=== PATIENT | female | born 1960 | race Caucasian/White ===

== ENCOUNTER → 2023-08-19 07:02 | Outpatient (REF) | payer OTHER, SELFPAY | LOC: RAD 07:02 | PROVIDERS: ATTENDING PHYSICIAN Internal Medicine Hematology & Oncology; FAMILY PHYSICIAN Student in an Organized Health Care Education/Training Program | DX: C77.1 Secondary and unspecified malignant neoplasm of intrathoracic lymph nodes (principal); C34.91 Malignant neoplasm of unspecified part of right bronchus or lung; C78.7 Secondary malignant neoplasm of liver and intrahepatic bile duct; C77.0 Secondary and unspecified malignant neoplasm of lymph nodes of head, face and neck | CPT/HCPCS: 70491; 71260; 74177; Q9967 ==

== ENCOUNTER 2023-08-19 09:55 | Outpatient (RCR) | payer OTHER, SELFPAY ==
[2023-08-19 10:24] LABS: % Basophils 0.6 % (0-2); % Immature Granulocytes 0.6 % (0-0.5); % Lymphocytes 13.3 % (20.5-51.1); % Neutrophils 74.5 % (42.2-75.2); Absolute Basophils 0.1 10^3/uL (0-0.2); Absolute Eosinophils 0.2 10^3/uL (0-0.7); Absolute Immature Granulocytes 0.1 10^3/uL (0-0.05); Absolute Lymphocytes 1.4 10^3/uL (1.2-3.4); Absolute Monocytes 0.9 10^3/uL (0.1-0.6); Absolute Neutrophils 7.6 10^3/uL (1.4-6.5); Hematocrit 38.3 % (37.0-47.0); Mean Corp Hgb Conc. 33.9 g/dL (33.0-37.0); Mean Corpuscular Hgb 29.8 pg (27.0-31.0); Mean Corpuscular Volume 87.8 fL (81.0-99.0); Mean Platelet Volume 8.6 fL (7.4-10.4); Platelet Count 153 10^3/uL (130-400); Red Blood Cell Count 4.36 10^6/uL (4.20-5.40); Red Cell Dist. Width 14.8 % (11.5-14.5); White Blood Cell Count 10.2 10^3/uL (4.8-10.8)
[2023-08-19 10:29] VITALS: BMI 33.3
[2023-08-19 10:33] VITALS: BP 127/91
[2023-08-19 11:28] LABS: ALT (SGPT) 11 U/L (0-35); AST (SGOT) 19 U/L (14-36); Albumin 3.4 g/dl (3.5-5.0); Alkaline Phosphatase 93 U/L (38-126); Blood Urea Nitrogen 10 mg/dl (7-17); Calcium 8.9 mg/dl (8.4-10.2); Carbon Dioxide 26 mmol/L (22-30); Chloride 97 mmol/L (98-107); Estimated Creatinine Clearance 107 ml/min; Glucose 94 mg/dl (70-99); Potassium 3.6 mmol/L (3.5-5.1); Sodium 127 mmol/L (135-145); Total Bilirubin 0.6 mg/dl (0.2-1.3); Total Protein 6.4 g/dl (6.3-8.2); eGFR > 60.00
[2023-08-19 12:25] LABS: Free T4 0.94 ng/dl (0.78-2.19)
[2023-08-19] MEDS: OPDIVO 136 MG IV (13:15)
[2023-08-19] MEDS: YERVOY 68.5999999999999943 MG IV (14:02)
== END 2023-08-24 23:59 | disposition home or self-care (01) ==
LOC: OID 09:55
PROVIDERS: ATTENDING PHYSICIAN Internal Medicine Hematology & Oncology
DX: Z51.11 Encounter for antineoplastic chemotherapy (principal); C77.0 Secondary and unspecified malignant neoplasm of lymph nodes of head, face and neck; C78.7 Secondary malignant neoplasm of liver and intrahepatic bile duct; C34.91 Malignant neoplasm of unspecified part of right bronchus or lung
CPT/HCPCS: 80053; 84439; 84443; 85025; 96413; 96416; J9228; J9299

== ENCOUNTER 2023-08-30 14:21 | Emergency (ER) | payer OTHER, SELFPAY ==
[2023-08-30 14:32] VITALS: BP 124/78
[2023-08-30 14:56] LABS: % Basophils 0.7 % (0-2); % Eosinophils 1.8 % (0-6); % Immature Granulocytes 0.5 % (0-0.5); % Lymphocytes 10.4 % (20.5-51.1); % Monocytes 8.1 % (1.7-9.3); % Neutrophils 78.5 % (42.2-75.2); Absolute Basophils 0.1 10^3/uL (0-0.2); Absolute Eosinophils 0.2 10^3/uL (0-0.7); Absolute Immature Granulocytes 0.1 10^3/uL (0-0.05); Absolute Lymphocytes 1.1 10^3/uL (1.2-3.4); Absolute Monocytes 0.8 10^3/uL (0.1-0.6); Absolute Neutrophils 8.1 10^3/uL (1.4-6.5); Hematocrit 37.3 % (37.0-47.0); Hemoglobin 12.8 g/dL (12.0-16.0); Mean Corp Hgb Conc. 34.3 g/dL (33.0-37.0); Mean Corpuscular Hgb 29.4 pg (27.0-31.0); Mean Corpuscular Volume 85.6 fL (81.0-99.0); Mean Platelet Volume 9.3 fL (7.4-10.4); Nucleated Red Blood Cells % 0 %; Platelet Count 171 10^3/uL (130-400); Red Blood Cell Count 4.36 10^6/uL (4.20-5.40); Red Cell Dist. Width 14.6 % (11.5-14.5); White Blood Cell Count 10.3 10^3/uL (4.8-10.8)
[2023-08-30 15:07] LABS: ALT (SGPT) 14 U/L (0-35); AST (SGOT) 20 U/L (14-36); Albumin 3.3 g/dl (3.5-5.0); Alkaline Phosphatase 82 U/L (38-126); Blood Urea Nitrogen 13 mg/dl (7-17); Calcium 9.2 mg/dl (8.4-10.2); Carbon Dioxide 29 mmol/L (22-30); Chloride 99 mmol/L (98-107); Glucose 132 mg/dl (70-99); Potassium 3.3 mmol/L (3.5-5.1); Sodium 132 mmol/L (135-145); Total Bilirubin 0.5 mg/dl (0.2-1.3); Total Protein 6.6 g/dl (6.3-8.2); eGFR > 60.00
[2023-08-30 15:19] LABS: Troponin I < 0.012 ng/ml
--- NOTE | 2023-08-30 16:47 | ED.GENMED ---
History of Present Illness
<Joseph Bashir PA-C - Last Filed: 08/30/23 17:59>
General
Chief Complaint: Breathing Problem
Source: patient
Exam Limitations: none
Time Seen by Provider: 08/30/23 16:34
Travel History
Have you had any contact with someone who has COVID-19?: No
Do you have any symptoms of coronavirus? Fever > 100 degrees, chills, cough, shortness of breath, sore throat, loss of taste or smell, muscle aches, or headache?: Yes
Symptoms:: see triage note
History of Present Illness
History of Present Illness:
62-year-old female with history of lung cancer currently on immunotherapy presents complaining of onset of chest pain and shortness of breath this morning upon awakening. She states she is under extreme amount of stress. Her mother is potentially
going into hospice care. She was about to leave from the waiting room as she was feeling somewhat better but decided to keep her self here. She notes her symptoms are improved. She denies leg swelling. She continues to smoke. No measurable
fever at home. No new cough. No other complaints at this time
Past History
<Joseph Bashir PA-C - Last Filed: 08/30/23 17:59>
Past History
ED Past Medical History: COPD and Other (Bronchitis, pneumonia); Negative Cancer, HTN, Hypercholesterolemia, IDDM, NIDDM or [place]
ED Past Surgical History: Other (Liver biopsy)
Social History
Tobacco: Smoker
Alcohol: None
Drug: None
Living: with family (daughter and 85 yo mother)
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
Family History
Family History: Hypertension; Negative CAD
Phy Exam
<Joseph Bashir PA-C - Last Filed: 08/30/23 17:59>
Physical Exam
Physical Exam:
General: Well-appearing female no acute respiratory distress
HEENT: Normocephalic atraumatic neck is supple
Heart: Tachycardic but regular
Lungs are coarse bilaterally
Abdomen is soft nontender nondistended extremities:
Ext: NO cyanosis
Skin: warm, no rashes.
Scores
<Joseph Bashir PA-C - Last Filed: 08/30/23 17:59>
Heart Failure Risk
Heart Failure Risk Score: Not Applicable
Course
<Joseph Bashir PA-C - Last Filed: 08/30/23 17:59>
Orders/Labs/Results
Orders:
Orders
08/30/23 14:37
EKG [Electrocardiogram (*1)] Urgent
Reason for Study: Shortness of Breath
EKG- Treatment ONCE
08/30/23 14:46
Complete Blood Count/With Diff Urgent
Comprehensive Metabolic Panel Urgent
Troponin I Urgent
08/30/23 16:45
CT Chest Pe Study Urgent
Comment:
Reason For Exam: chest pain, sob, history of lung CA
Abnormal Lab Results
08/30/23
14:46
RDW 14.6 H %
(11.5-14.5)
Abs Immat Gran (auto) 0.1 H 10^3/uL
(0-0.05)
Absolute Neuts (auto) 8.1 H 10^3/uL
(1.4-6.5)
Absolute Lymphs (auto) 1.1 L 10^3/uL
(1.2-3.4)
Absolute Monos (auto) 0.8 H 10^3/uL
(0.1-0.6)
Neutrophils % 78.5 H %
(42.2-75.2)
Lymphocytes % 10.4 L %
(20.5-51.1)
Sodium 132 L mmol/L
(135-145)
Potassium 3.3 L mmol/L
(3.5-5.1)
Glucose 132 H mg/dl
(70-99)
Albumin 3.3 L g/dl
(3.5-5.0)
08/30/23 14:46
08/30/23 14:46
Vital Signs
Initial and Last Documented VS:
Initial Vital Signs
Temp Pulse Resp BP Pulse Ox
98.5 F 124 22 124/78 96
08/30/23 14:32 08/30/23 14:32 08/30/23 14:32 08/30/23 14:32 08/30/23 14:32
Last Documented Vital Signs
Temp Pulse Resp BP Pulse Ox
98.5 F 103 23 127/79 97
08/30/23 14:32 08/30/23 17:53 08/30/23 17:53 08/30/23 17:53 08/30/23 17:53
Elizabethlt;Pop Reyes, DO - Last Filed: 08/30/23 17:55>
Orders/Labs/Results
Orders:
Orders
08/30/23 14:37
EKG [Electrocardiogram (*1)] Urgent
Reason for Study: Shortness of Breath
EKG- Treatment ONCE
08/30/23 14:46
Complete Blood Count/With Diff Urgent
Comprehensive Metabolic Panel Urgent
Troponin I Urgent
08/30/23 16:45
CT Chest Pe Study Urgent
Comment:
Reason For Exam: chest pain, sob, history of lung CA
Abnormal Lab Results
08/30/23
14:46
RDW 14.6 H %
(11.5-14.5)
Abs Immat Gran (auto) 0.1 H 10^3/uL
(0-0.05)
Absolute Neuts (auto) 8.1 H 10^3/uL
(1.4-6.5)
Absolute Lymphs (auto) 1.1 L 10^3/uL
(1.2-3.4)
Absolute Monos (auto) 0.8 H 10^3/uL
(0.1-0.6)
Neutrophils % 78.5 H %
(42.2-75.2)
Lymphocytes % 10.4 L %
(20.5-51.1)
Sodium 132 L mmol/L
(135-145)
Potassium 3.3 L mmol/L
(3.5-5.1)
Glucose 132 H mg/dl
(70-99)
Albumin 3.3 L g/dl
(3.5-5.0)
08/30/23 14:46
08/30/23 14:46
Vital Signs
Initial and Last Documented VS:
Initial Vital Signs
Temp Pulse Resp BP Pulse Ox
98.5 F 124 22 124/78 96
08/30/23 14:32 08/30/23 14:32 08/30/23 14:32 08/30/23 14:32 08/30/23 14:32
Last Documented Vital Signs
Temp Pulse Resp BP Pulse Ox
98.5 F 103 23 127/79 97
08/30/23 14:32 08/30/23 17:53 08/30/23 17:53 08/30/23 17:53 08/30/23 17:53
Elizabethlt;Joseph Bashir PA-C - Last Filed: 08/30/23 17:59>
MDM/Problems Addressed
Differential Diagnosis Includes:
Chest pain or shortness of breath. Consider stress versus anxiety versus ACS versus PE. Symptoms are resolving but still tachycardic on exam. Troponin undetectable. Will check PE study given high risk nature with history of cancer.
<Joseph Bashir PA-C - Last Filed: 08/30/23 17:59>
*Critical Care Note
Total Time (30-74mins, 75-104mins- exclusive of procedures): Not Applicable
<Joseph Bashir PA-C - Last Filed: 08/30/23 17:59>
Update Note
Update Note:
PE study shows moderate pericardial effusion which is slightly increased from prior study. No pulmonary embolism. Multiple issues with her metastatic disease are noted on the CT as well. Patient is feeling better. Heart rate down to 100.
Patient wishes to go home. She has an appoint with her oncologist in 2 days which I think is reasonable to do. Return precautions were given
ED Attending Note
<Joseph Bashir PA-C - Last Filed: 08/30/23 17:59>
-
Portions of this chart may have been created with voice recognition software.� Occasional wrong word or��sound alike� substitutions may have occurred due to the inherent limitations of voice recognition software.
<Pop Reyes DO - Last Filed: 08/30/23 17:55>
ED Attending Note
Patient seen and examined by attending physician: Yes
I performed the substantive portion of visit, reviewed & personally made and approve the management plan that is documented in note by myself or MOSES.: Yes
ED Attending Note:
Seen with PA examined independently 62-year-old female advanced lung cancer followed by Dr. Patton under some stress related to her mother who is going into hospice, is tachycardic here, on CT no PE but does have a moderate effusion heart rate down
to 100 without intervention offered admission for potentially advanced imaging echo pericardiocentesis patient prefers to go home and see Dr. Patton on Friday to discuss this and any other treatments that could be benefit for her, patient clear
instructed to return to the ER for worsening symptoms
Discharge Plan
Departure
Patient Disposition: Home (Routine Discharge)
Date of Disposition: 08/30/23
Time of Disposition: 17:57
Patient with high blood pressure during this ER visit?: No
Discharge Problem:
Dyspnea
Instructions: Shortness of Breath (Dyspnea) (DC)
Prescriptions:
No Action
fexofenadine [Charisse] 180 MG tablet
180 mg PO DAILYPRN PRN (Reason: allergies)
amlodipine 10 MG tablet
10 mg PO DAILY Qty: 30 2RF
ondansetron HCl 4 MG tablet
8 mg PO TIDPRN PRN (Reason: nausea)
Lorazepam 0.5 MG Tablet
0.5 mg PO DAILY PRN (Reason: anxiety)
prednisone 5 mg Tablet
5 mg PO DAILY
prochlorperazine maleate 10 mg Tablet
10 mg PO Q6H PRN (Reason: nausea)
Referrals:
Judith Escobar MD [Family Provider] -
Activity Restrictions/Additional Instructions:
Please follow-up with your oncologist as planned. Please return here for worsening symptoms. As discussed there was a pericardial effusion noted on your CAT scan, this may require more follow-up with cardiology
Interventions
Interventions:
*General Assessment Last Done: 08/30/23 14:32
*ED COVID-19 Vaccine History Last Done: 08/30/23 14:32
Discharge Date and Time
Print Language: JAPANESE
[2023-08-30 17:53] VITALS: BP 127/79
== END 2023-08-30 18:11 | disposition home or self-care (01) ==
LOC: EMR 14:21
PROVIDERS: Emergency Medicine; EMERGENCY PHYSICIAN Emergency Medicine; FAMILY PHYSICIAN Student in an Organized Health Care Education/Training Program
DX: R06.00 Dyspnea, unspecified (principal); R07.89 Other chest pain; R06.02 Shortness of breath; F17.200 Nicotine dependence, unspecified, uncomplicated; J44.9 Chronic obstructive pulmonary disease, unspecified; Z82.49 Family history of ischemic heart disease and other diseases of the circulatory system
CPT/HCPCS: 99284; 71275; 80053; 84484; 85025; 93005; Q9967

== ENCOUNTER → 2023-09-02 15:54 | Outpatient (REF) | payer MEDICARE, SELFPAY | LOC: RCS 15:54 | PROVIDERS: ATTENDING PHYSICIAN Internal Medicine Hematology & Oncology; FAMILY PHYSICIAN Student in an Organized Health Care Education/Training Program | DX: C34.91 Malignant neoplasm of unspecified part of right bronchus or lung (principal) | CPT/HCPCS: 93306 ==

== ENCOUNTER 2023-09-10 14:31 | Outpatient (RCR) | payer OTHER, SELFPAY ==
[2023-08-26 13:22] LABS: % Basophils 0.7 % (0-2); % Eosinophils 2.5 % (0-6); % Immature Granulocytes 0.5 % (0-0.5); % Lymphocytes 11.5 % (20.5-51.1); % Monocytes 10.5 % (1.7-9.3); % Neutrophils 74.3 % (42.2-75.2); Absolute Basophils 0.1 10^3/uL (0-0.2); Absolute Eosinophils 0.3 10^3/uL (0-0.7); Absolute Immature Granulocytes 0.1 10^3/uL (0-0.05); Absolute Lymphocytes 1.2 10^3/uL (1.2-3.4); Absolute Monocytes 1.1 10^3/uL (0.1-0.6); Absolute Neutrophils 7.5 10^3/uL (1.4-6.5); Hematocrit 39.6 % (37.0-47.0); Hemoglobin 13.4 g/dL (12.0-16.0); Mean Corp Hgb Conc. 33.8 g/dL (33.0-37.0); Mean Corpuscular Hgb 29.6 pg (27.0-31.0); Mean Corpuscular Volume 87.4 fL (81.0-99.0); Mean Platelet Volume 9.5 fL (7.4-10.4); Platelet Count 165 10^3/uL (130-400); Red Blood Cell Count 4.53 10^6/uL (4.20-5.40); Red Cell Dist. Width 14.5 % (11.5-14.5); White Blood Cell Count 10.1 10^3/uL (4.8-10.8)
[2023-08-26 14:13] LABS: ALT (SGPT) 13 U/L (0-35); AST (SGOT) 23 U/L (14-36); Albumin 3.5 g/dl (3.5-5.0); Alkaline Phosphatase 92 U/L (38-126); Blood Urea Nitrogen 11 mg/dl (7-17); Carbon Dioxide 28 mmol/L (22-30); Chloride 97 mmol/L (98-107); Glucose 115 mg/dl (70-99); Potassium 3.5 mmol/L (3.5-5.1); Sodium 128 mmol/L (135-145); Total Bilirubin 0.7 mg/dl (0.2-1.3); Total Protein 6.7 g/dl (6.3-8.2); eGFR > 60.00
[2023-08-26 14:41] LABS: TSH Reflex To Free T4 9.77 uIU/ml (0.47-4.68)
[2023-08-26 15:35] LABS: Free T4 1.16 ng/dl (0.78-2.19)
[2023-09-09 08:59] LABS: % Basophils 1.1 % (0-2); % Eosinophils 2.1 % (0-6); % Immature Granulocytes 0.6 % (0-0.5); % Lymphocytes 18.2 % (20.5-51.1); % Monocytes 8.9 % (1.7-9.3); % Neutrophils 69.1 % (42.2-75.2); Absolute Basophils 0.1 10^3/uL (0-0.2); Absolute Eosinophils 0.2 10^3/uL (0-0.7); Absolute Immature Granulocytes 0.1 10^3/uL (0-0.05); Absolute Lymphocytes 1.5 10^3/uL (1.2-3.4); Absolute Monocytes 0.7 10^3/uL (0.1-0.6); Absolute Neutrophils 5.7 10^3/uL (1.4-6.5); Hematocrit 39.8 % (37.0-47.0); Hemoglobin 13.2 g/dL (12.0-16.0); Mean Corp Hgb Conc. 33.2 g/dL (33.0-37.0); Mean Corpuscular Hgb 29.5 pg (27.0-31.0); Mean Platelet Volume 8.9 fL (7.4-10.4); Platelet Count 164 10^3/uL (130-400); Red Blood Cell Count 4.47 10^6/uL (4.20-5.40); Red Cell Dist. Width 14.6 % (11.5-14.5); White Blood Cell Count 8.2 10^3/uL (4.8-10.8)
[2023-09-09 09:09] VITALS: BP 139/87; BMI 31.6
[2023-09-09 09:47] LABS: ALT (SGPT) 14 U/L (0-35); AST (SGOT) 19 U/L (14-36); Albumin 3.4 g/dl (3.5-5.0); Alkaline Phosphatase 91 U/L (38-126); Blood Urea Nitrogen 12 mg/dl (7-17); Calcium 9.2 mg/dl (8.4-10.2); Carbon Dioxide 28 mmol/L (22-30); Chloride 100 mmol/L (98-107); Glucose 150 mg/dl (70-99); Potassium 3.6 mmol/L (3.5-5.1); Sodium 132 mmol/L (135-145); Total Bilirubin 0.4 mg/dl (0.2-1.3); Total Protein 6.7 g/dl (6.3-8.2); eGFR > 60.00
[2023-09-09 10:18] LABS: TSH Reflex To Free T4 5.22 uIU/ml (0.47-4.68)
[2023-09-09] MEDS: OPDIVO 136 MG IV (10:23)
[2023-09-09] MEDS: EMEND 150 MG IV (11:01)
[2023-09-09 11:06] LABS: Free T4 1.49 ng/dl (0.78-2.19)
[2023-09-09] MEDS: ALOXI 5 MG IV (12:03)
[2023-09-09] MEDS: DECADRON 51 MG IV (12:04)
[2023-09-09] MEDS: ALIMTA/PEMETREXED 100 MG IV (12:42)
[2023-09-09 12:48] VITALS: BP 131/77
[2023-09-09] MEDS: PARAPLATIN 302.899999999999977 MG IV (13:10)
[2023-09-09] MEDS: CYANOCOBALAMIN 1000 MCG IM (14:55)
[2023-09-09 15:12] VITALS: BP 118/69
[2023-09-10 14:35] VITALS: BP 125/78
[2023-09-10] MEDS: FULPHILA 6 MG SC (14:42)
--- NOTE | 2023-09-15 10:21 | OIDSOC ---
Addendum entered and electronically signed by Fabiola Collins 09/15/23 10:23:
Pt did complete a distress screening, scoring an 8/10. Pt is already well known to addiction social worker, and Jennifer Mendoza, financial navigator. Will support pt as needed.
Original Note:
Met with pt chairside to follow up on financial concerns. Applied pt for [facility]. [facility]ear stopped by to speak with pt as well about [facility]. Offered [facility] to pt, who would like to utilize that david once she is in a new living
situation. Will continue to follow and assist pt as needed. Wally
== END 2023-09-23 23:59 | disposition home or self-care (01) ==
LOC: OID 14:31
PROVIDERS: ATTENDING PHYSICIAN Internal Medicine Hematology & Oncology
DX: Z51.11 Encounter for antineoplastic chemotherapy (principal); C77.0 Secondary and unspecified malignant neoplasm of lymph nodes of head, face and neck (principal); C34.91 Malignant neoplasm of unspecified part of right bronchus or lung; C78.7 Secondary malignant neoplasm of liver and intrahepatic bile duct
CPT/HCPCS: 36415; 80053; 84439; 84443; 85025; 96367; 96372; 96375; 96411; 96413; 96417; J1453; J2469; J9045; J9299; J9305; Q5108

== ENCOUNTER → 2023-09-18 15:13 | Outpatient (REF) | payer MEDICARE, SELFPAY | LOC: RCS 15:13 | PROVIDERS: ATTENDING PHYSICIAN Internal Medicine Cardiovascular Disease; FAMILY PHYSICIAN Student in an Organized Health Care Education/Training Program | DX: I31.39 Other pericardial effusion (noninflammatory) (principal); C34.90 Malignant neoplasm of unspecified part of unspecified bronchus or lung | CPT/HCPCS: 93308; 93321; 93325 ==

== ENCOUNTER → 2023-10-01 14:17 | Outpatient (REF) | payer OTHER, SELFPAY | LOC: RAD 14:17 | PROVIDERS: ATTENDING PHYSICIAN Internal Medicine Hematology & Oncology | DX: C34.91 Malignant neoplasm of unspecified part of right bronchus or lung (principal); C77.1 Secondary and unspecified malignant neoplasm of intrathoracic lymph nodes | CPT/HCPCS: 71270; Q9967 ==

== ENCOUNTER → 2023-10-01 14:18 | Outpatient (REF) | payer OTHER, SELFPAY | LOC: RAD 14:18 | PROVIDERS: ATTENDING PHYSICIAN Internal Medicine Hematology & Oncology | DX: C34.91 Malignant neoplasm of unspecified part of right bronchus or lung (principal); C77.1 Secondary and unspecified malignant neoplasm of intrathoracic lymph nodes | CPT/HCPCS: 70492; Q9967 ==

== ENCOUNTER 2023-10-04 23:32 | Inpatient (IN) | payer OTHER, SELFPAY ==
[2023-10-04 21:01] VITALS: BP 164/109
[2023-10-04 21:21] VITALS: BMI 32.0
[2023-10-04] MEDS: DUONEB 3 ML INH (21:30)
[2023-10-04 21:40] VITALS: BP 122/66
--- NOTE | 2023-10-04 21:45 | ED.GENMED ---
History of Present Illness
General
Chief Complaint: Breathing Problem
Source: patient
Exam Limitations: none
Time Seen by Provider: 10/04/23 21:13
Travel History
Have you had any contact with someone who has COVID-19?: No
Do you have any symptoms of coronavirus? Fever > 100 degrees, chills, cough, shortness of breath, sore throat, loss of taste or smell, muscle aches, or headache?: Yes
Symptoms:: SOB
History of Present Illness
History of Present Illness:
62-year-old female complaining of increased shortness of breath today. Generally feels weak after her chemotherapy treatment which was done 4 days ago. Hoarse voice and congestion are not unusual and have been ongoing. Also complaining of neck
swelling that has been there for weeks. Had a recent CT scan done. Actually feels neck swelling is mildly improved. Denies pleuritic pain abdominal pain
Past History
Past History
ED Past Medical History: Cancer (Stage IV lung cancer), COPD, HTN and Other (Bronchitis, pneumonia); Negative Hypercholesterolemia, IDDM, NIDDM or [place]
ED Past Surgical History: Other (Liver biopsy. Subcutaneous port)
Social History
Tobacco: Smoker
Alcohol: None
Drug: None
Living: with family (daughter and 85 yo mother)
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
Family History
Family History: Hypertension; Negative CAD
Review of Systems
Review of Systems
All Other Systems: Not applicable
Constitutional: Denies fever
Cardiac: Denies chest pain or syncope
Phy Exam
Physical Exam
Physical Exam:
GENERAL: Alert and oriented. Chronically ill-appearing.
NECK: Supple, submandibular swelling fairly soft in nature.
ENT: Pharynx without erythema no drooling or stridor although hoarse voice
CARDIAC: Regular rate and rhythm without any obvious murmurs.
LUNGS: Minimal tachypnea and mild rhonchi. No wheezing or rales
ABDOMEN: Soft, without focal tenderness or distention. Elevated BMI
NEUROLOGICAL: Alert and oriented , grossly non-focal
SKIN: Warm and dry, no rash or lesion, no discoloration, skin intact.
MUSCULOSKELETAL: No edema,no deformity.Good color
PSYCH: Normal and appropriate interaction.
Scores
Heart Failure Risk
Heart Failure Risk Score: Not Applicable
Course
Orders/Labs/Results
Orders:
Orders
10/04/23 21:20
CT Chest Pe Study Urgent
Comment:
Reason For Exam: Short of breath
Cardiac Monitoring- Treatment ONCE
IV Insert/Care/Rem.- Treatment PRN
CR Chest Portable - 1 View Urgent
Comment:
Reason For Exam: Short of breath
Reason Study Needs to be Portable: Unable to Transport
10/04/23 21:23
Basic Metabolic Panel Urgent
COVID-19 Antigen Urgent
Source: Nasal Swab
Complete Blood Count/With Diff Urgent
Manual Differential Urgent
NT-proBNP Urgent
Troponin I Urgent
Blood Culture Q30M
[place] Source: Blood/Venous
Specimen Description:
Blood Culture Q30M
[place] Source: Blood/Venous
Specimen Description:
10/04/23 21:27
Ipratropium/Albuterol Sulfate [Duoneb] 3 ml INH R NOW ONE
10/04/23 21:28
EKG [Electrocardiogram (*1)] Urgent
Reason for Study: Shortness of Breath
EKG- Treatment ONCE
10/04/23 21:43
Lactic Acid Q4H
Comment: CANCEL 2nd LACTIC ACID IF 1st LACTIC ACID IS LESS THAN 2
Abnormal Lab Results
10/04/23
21:23
RBC 4.02 L 10^6/uL
(4.20-5.40)
Hct 34.8 L %
(37.0-47.0)
RDW 17.6 H %
(11.5-14.5)
Plt Count 80 L D 10^3/uL
(130-400)
Abs Neuts (Manual) 8.1 H 10^3/uL
(1.4-6.5)
Segmented Neutrophils 90 H %
(42-75)
Lymphocytes (Manual) 4 L %
(20-51)
Sodium 127 L mmol/L
(135-145)
Chloride 92 L mmol/L
(98-107)
Creatinine 0.5 L mg/dL
(0.6-1.0)
10/04/23 21:23
10/04/23 21:23
Vital Signs
Initial and Last Documented VS:
Initial Vital Signs
Temp Pulse Resp BP Pulse Ox
98.1 F 120 28 164/109 92
10/04/23 21:01 10/04/23 21:01 10/04/23 21:01 10/04/23 21:01 10/04/23 21:01
Last Documented Vital Signs
Temp Pulse Resp BP Pulse Ox
97.9 F 110 18 117/81 98
10/05/23 07:00 10/05/23 11:59 10/05/23 11:59 10/05/23 08:13 10/05/23 11:59
MDM/Problems Addressed
Differential Diagnosis Includes:
Patient's major complaint is shortness of breath. Has general weakness but this is not unusual after chemotherapy. She had CAT scans done 3 days ago with significant adenopathy pericardial effusion small to moderate trace pleural effusions no
evidence of pneumonia. CT of the neck at that time showed swelling of the anterior neck with no airway compromise. Compression of the internal jugular vein. Chest x-ray is negative. Because of patient's increased shortness of breath still being
worked up. Pulmonary emboli pericardial effusion and COPD all in the differential.
*Radiology
Radiology exam reviewed: preliminary read by ED provider (Negative) and radiology read reviewed (No obvious PE aortic dissection or aortic aneurysm large filling defect left distal brachiocephalic vein likely central venous thrombus spiculated
nodule in the lung)
*Pulse Oximetry
Patient hypoxic: no
*EKG
Interpreted by ED Provider?: Yes
Interpretation: abnormal
Comparison EKG: changes noted
Heart Rate: 110
Rate: tachycardiac
Rhythm: sinus
[place]: normal axis
Interval: normal interval
QRS Pattern: normal QRS
Ischemia: non-specific ST changes
*Automated Cutting Machine Operator Interpretation
Rate: tachycardiac
Interpretation: abnormal
Heart Rate: 110
Rhythm: sinus
*Critical Care Note
Total Time (30-74mins, 75-104mins- exclusive of procedures): Not Applicable
Data Reviewed
Review of Other/Old Records Reveals: Labs, Records, Radiology Studies, Testing and Discharge Summary
ED Attending Note
-
Portions of this chart may have been created with voice recognition software.� Occasional wrong word or��sound alike� substitutions may have occurred due to the inherent limitations of voice recognition software.
Discharge Plan
Departure
Patient Disposition: Admit
Date of Disposition: 10/04/23
Time of Disposition: 22:59
Presentation/result/management discussed w/ accepting MD/DO: Hospitalist
Discharge Problem:
Dyspnea, Brachiocephalic vein thrombosis, Neck swelling, Hyponatremia
Interventions
Interventions:
*Risk Screen - Suicide Last Done: 10/05/23 01:28
*General Assessment Last Done: 10/04/23 21:01
*Neglect/Abuse Screening Last Done: 10/04/23 21:01
ED- Fall Risk Assessment Last Done: 10/04/23 21:30
*ED COVID-19 Vaccine History Last Done: 10/05/23 01:28
*Nursing Disposition Last Done: 10/05/23 01:12
ED- Cardiac Assessment Last Done: 10/04/23 21:30
ED- Pulmonary Assessment Last Done: 10/04/23 21:30
Discharge Date and Time
Discharge Date/Time: 10/05/23 01:15
[2023-10-04 21:59] LABS: COVID-19 Antigen Negative (Negative)
[2023-10-04 22:00] VITALS: BP 131/69
[2023-10-04 22:04] LABS: Hematocrit 34.8 % (37.0-47.0); Hemoglobin 12.1 g/dL (12.0-16.0); Mean Corp Hgb Conc. 34.8 g/dL (33.0-37.0); Mean Corpuscular Hgb 30.1 pg (27.0-31.0); Mean Corpuscular Volume 86.6 fL (81.0-99.0); Mean Platelet Volume 9.9 fL (7.4-10.4); Platelet Count 80 10^3/uL (130-400); Red Blood Cell Count 4.02 10^6/uL (4.20-5.40); Red Cell Dist. Width 17.6 % (11.5-14.5)
[2023-10-04 22:11] LABS: Lactic Acid 1.6 mmol/L (0.7-2.0)
[2023-10-04 22:13] LABS: Blood Urea Nitrogen 12 mg/dl (7-17); Calcium 9.2 mg/dl (8.4-10.2); Carbon Dioxide 27 mmol/L (22-30); Chloride 92 mmol/L (98-107); Estimated Creatinine Clearance 108 ml/min; Glucose 94 mg/dl (70-99); Potassium 3.5 mmol/L (3.5-5.1); Sodium 127 mmol/L (135-145); eGFR > 60.00
[2023-10-04 22:24] LABS: NT-proBNP 612 pg/ml
[2023-10-04 22:30] LABS: Lymphocytes 4 % (20-51); Segmented Neutrophils 90 % (42-75)
[2023-10-04 22:31] LABS: Absolute Neutrophils -Man Diff 8.1 10^3/uL (1.4-6.5); Atypical Lymphocytes 2 %; Band Neutrophils 0 % (0-3); Metamyelocytes 3 % (-); Myelocytes 1 % (-); Normal RBC Morphology Yes; Platelets Checked Yes; Total Cells Counted 100
--- NOTE | 2023-10-04 23:29 | HPS.HSE ---
Family Physician
-
Family Physician: Aydin Frey
Chief Complaint
-
Shortness of Breath
History of Present Illness
Patient is a 62 year old female patient with lung cancer, COPD, hypothyroidism who presents for worsening SOB. She states she has been experiencing ongoing SOB due to lung CA, but it acutely worsened today. She denies chest pain or worsening cough.
She also complains of ongoing hoarseness of voice and swelling of the neck for the past few weeks. CT scan in the ED showed a large filling defect in the distal left brachiocephalic vein, likely a central venous thrombus as well as moderate to
severe mediastinal, bilateral axillary and supraclavicular adenopathy. Hospitalist group was asked to evaluate the patient for admission to the hospital.
Medical History
Past Medical History
Past Medical History: Reports Other
Additional Past Medical History:
Stage LEONARDO Non-Small Cell Lung CA
Essential Hypertension
Hypothyroidism
Anxiety
COPD
Past Surgical History: Reports Other
Additional Past Surgical History:
SQ Port
Liver Biopsy
Social History
Tobacco: Smoker (/ PPD)
Alcohol: None
Family History
Family History: Not pertinent
Allergies / Home Medications
Allergies reflects when Allergies were last updated in [facility].
Home Medications with original date entered in [facility]
Allergy/Medication List:
Allergies
Allergy/AdvReac Type Severity Reaction Status Date / Time
Penicillins Allergy yeast Verified 10/01/23 11:58
infection
Home Medications
amlodipine 10 mg tablet 10 mg PO DAILY #30 tabs 06/22/20
Lorazepam 0.5 mg PO [id number] PRN anxiety 07/25/21
prednisone 5 mg tablet 10 mg PO DAILY 08/19/23
prochlorperazine maleate 10 mg tablet 10 mg PO Q6H PRN nausea 08/19/23
folic acid 1 mg tablet 1 mg PO DAILY 09/09/23
levothyroxine 25 mcg tablet (Synthroid) 25 mcg PO DAILY 09/09/23
budesonide 160 mcg-glycopyr 9 mcg-formot 4.8 mcg/actuation HFA inhaler (Breztri Aerosphere) 2 inh inhalation BID 10/04/23
Review of Systems
-
A 12 point ROS was completed and negative except as noted: Yes
Constitutional: Denies Fever or Chills
Respiratory: Reports Trouble Breathing
Cardiac: Denies Chest Pain or Palpitations
Physical Exam
Vital Signs
Vital Signs
Temp Pulse Resp BP Pulse Ox
99.5 F 107 14 131/69 93
10/04/23 21:32 10/04/23 22:00 10/04/23 22:00 10/04/23 22:00 10/04/23 22:00
Physical Exam
General: Comfortable, Conversant and Other (Voice is hoarse which patient states is chronic)
HEENT: Other (Facial/Neck Swelling, chronic per patient)
Respiratory: Wheezes (Expiratory throughout) and Non Labored Respirations
Cardiac: S1/S2, Regular Rhythm and Tachycardia
GI: Soft and Non Tender
Rectal: Deferred by Provider
Musculoskeletal: No Clubbing, No Cyanosis and No Edema
Skin: Warm and Dry
Neuro: Awake, Alert, Oriented and Nonfocal/grossly intact
Hematologic/Lymphatic: Lymphadenopathy (Neck)
Laboratory Results
-
10/04/23 21:23
10/04/23 21:23
Laboratory Results
Lactic Acid 1.6 mmol/L (0.7-2.0) 10/04/23 21:43
Troponin I 0.020 ng/ml 10/04/23 21:23
Data Reviewed
-
CT Scan: Report Reviewed by me
Lab Data: Labs Reviewed by me
Impression/Plan
-
Left Brachiocephalic Thrombosis
-Consult Hematology
-Start heparin drip
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
-Check urine sodium and urine osmo
-Continue fluid restriction
Thrombocytopenia, likely related to chemotherapy
-Monitor platelet cough closely
Stage IV Non-Small Cell Lung CA
-Last chemotherapy/immunotherapy on September 29
-Patient received pegfilgrastim on September 30
-Continue prednisone as prior to admission
Essential Hypertension
-Continue amlodipine with hold parameters
Hypothyroidism
-Check TSH
-Continue Synthroid
Anxiety
-Continue Ativan prn
COPD, no acute exacerbation
-Continue Pulmicort and DuoNeb in place of usual Breztri
Tobacco Use Disorder
-Encourage smoking cessation
Code Status: Full Code
[2023-10-04 23:44] VITALS: BP 104/75
--- NOTE | 2023-10-04 23:45 | EDRN ---
Patient ambulated to the bathroom and back in bed resting comfortably at this time
[2023-10-05] VITALS (8 sets, daily range): BP systolic 105–156; BP diastolic 67–94; BMI 31.4; BMI 31.3
[2023-10-05] MEDS: HEPARIN 25000 UNITS/250 ML IV ×2 (00:04→17:49)
[2023-10-05 00:05] LABS: APTT 30.7 Sec (23.4-35.0)
--- NOTE | 2023-10-05 00:05 | W.PN.UPDATE ---
Update Note
Progress Note Update
Patient seen, examined and interviewed independently.
62 woman with shortness of breath.
h/o lung cancer, COPD, hypothyroidism who presents for worsening SOB. CT scan in the ED showed a large filling defect in the distal left brachiocephalic vein, likely a central venous thrombus as well as moderate to severe mediastinal, bilateral
axillary and supraclavicular adenopathy.
Physical Exam
General: Comfortable, Conversant and Other (Voice is hoarse which patient states is chronic)
HEENT: Other (Facial/Neck Swelling, chronic per patient)
Respiratory: Wheezes (Expiratory throughout) and Non Labored Respirations
Cardiac: S1/S2, Regular Rhythm and Tachycardia
GI: Soft and Non Tender
Musculoskeletal: No Clubbing, No Cyanosis and No Edema
Skin: Warm and Dry
A/P:
Left Brachiocephalic Thrombosis
Heparin gtt
Hematology consult (platelets 80)
Please see PA note for further details.
[2023-10-05] MEDS: ATIVAN 0.5 MG PO ×3 (01:38→23:20)
[2023-10-05] MEDS: SYNTHROID 25 MCG PO (04:57)
[2023-10-05 06:09] LABS: APTT 57.3 Sec (23.4-35.0)
[2023-10-05 06:26] LABS: Hematocrit 32.4 % (37.0-47.0); Hemoglobin 11.1 g/dL (12.0-16.0); Mean Corp Hgb Conc. 34.3 g/dL (33.0-37.0); Mean Corpuscular Hgb 29.8 pg (27.0-31.0); Mean Corpuscular Volume 87.1 fL (81.0-99.0); Mean Platelet Volume 10.6 fL (7.4-10.4); Platelet Count 69 10^3/uL (130-400); Red Blood Cell Count 3.72 10^6/uL (4.20-5.40); Red Cell Dist. Width 17.7 % (11.5-14.5); White Blood Cell Count 5.6 10^3/uL (4.8-10.8)
[2023-10-05 06:32] LABS: Blood Urea Nitrogen 13 mg/dl (7-17); Calcium 8.6 mg/dl (8.4-10.2); Carbon Dioxide 30 mmol/L (22-30); Chloride 91 mmol/L (98-107); Estimated Creatinine Clearance 107 ml/min; Glucose 89 mg/dl (70-99); Magnesium 1.2 mg/dl (1.6-2.3); Potassium 3.7 mmol/L (3.5-5.1); Sodium 124 mmol/L (135-145); eGFR > 60.00
[2023-10-05 06:55] LABS: TSH Reflex To Free T4 4.02 uIU/ml (0.47-4.68)
[2023-10-05] MEDS: PULMICORT 0.5 MG INH (07:55)
[2023-10-05] MEDS: DUONEB 3 ML INH ×2 (07:55→11:56)
[2023-10-05] MEDS: DELTASONE 10 MG PO (08:12)
[2023-10-05] MEDS: FOLVITE 1 MG PO (08:12)
[2023-10-05] MEDS: MAGNESIUM SULFATE 50 IV (09:15)
[2023-10-05 11:03] LABS: Osmolality Urine 792 mOsm/kg (300-900)
[2023-10-05 11:10] LABS: Urine Sodium 98 mmol/L (30-90)
--- NOTE | 2023-10-05 11:24 | W.PN.HOSP.TC ---
Today's Communication/Plan
-
Await Heme eval
Treat Hyponatremia
Assessment / Plan
Assessment / Plan
62-year-old female presented to the hospital with shortness of breath. She was found to have left brachiocephalic vein thrombosis
CT Chest-1. No evidence of pulmonary embolism or thoracic aortic dissection.
2. Filling defect within the central left brachiocephalic vein, likely representing thrombus or tumor thrombus. In retrospect, this was present on 10/01/2023, and also on a prior study dated 08/19/2023, although was not present on 01/21/2023.
3. Diffuse lymphadenopathy as detailed above, without significant change compared to recent prior study dated 10/01/2023.
4. 9 mm spiculated nodule within the right upper lobe, likely corresponding to the patient's known lung cancer.
5. Bilateral adrenal masses, unchanged compared to prior study.
6. Small pericardial effusion, unchanged compared to recent prior CT.
CVS: S1-S2 normal
Chest: CTA B/L
Abdomen: Soft, NT / Bowel sounds present
Extremities: arm edema, normal pulses, port , right neck , upper chest mild edema
# Shortness of breath on admission - Says resolved. No reason noted on CT. saturation normal on room air.
# Left brachiocephalic vein thrombosis
Likely secondary to malignancy
On heparin drip
Hematology has been consulted
# Acute on chronic hyponatremia
Likely SIADH
Fluid restriction
One dose of Samsca 15 mg
# Hypomagnesemia-replace IV
# Thrombocytopenia-likely secondary to chemotherapy and also secondary to clot
# Stage IV non-small cell lung cancer
Last chemotherapy/immunotherapy in September 30, 2023
Received pegfilgrastim October 01, 2023
On prednisone
# Hypertension- amlodipine
# Hypothyroidism continue Synthroid
# Bilateral Adrenal masses
# Small to moderate sized circumferential fibrinous pericardial effusion seen without evidence of tamponade.
Compared to prior from September 02, 2023, on [id number] comparison effusion appears similar.
# Anxiety-as needed Ativan
# COPD with no exacerbation-continue Breztri or equivalent.
# Tobacco use disorder-smoking cessation counseling. Nicotine Patch
# Full code
D/W RN
Anticipated Discharge: Within 24 hours
Subjective/Interval History
-
Date of Service: October 05, 2023
Objective Data
-
Labs:
Laboratory Results
10/04/23 10/05/23 10/05/23
23:47 05:51 13:00
WBC 5.6
Hgb 11.1 L
Hct 32.4 L
Plt Count 69 L
APTT 30.7 57.3 H Pending
Sodium 124 L
Potassium 3.7
Chloride 91 L
Carbon Dioxide 30
BUN 13
Creatinine 0.5 L
Glucose 89
Calcium 8.6
Vital Signs:
Vital Signs
Temp Pulse Resp BP Pulse Ox
97.9 F 73 18 117/81 96
10/05/23 07:00 10/05/23 08:13 10/05/23 07:58 10/05/23 08:13 10/05/23 07:58
I&O
10/04/23 10/05/23 10/06/23
06:59 06:59 06:59
Intake Total 240 / 240
Balance 240 / 240
[2023-10-05 12:27] LABS: Cortisol, Random 16.4 ug/dl
[2023-10-05 13:26] LABS: Osmolality Serum 261 mOsm/kg (275-300)
[2023-10-05] MEDS: NICODERM TRANSDERMAL 21 MG TRANSDERM (13:29)
[2023-10-05] MEDS: SAMSCA 15 MG PO (13:30)
--- NOTE | 2023-10-05 15:01 | CM ---
Patient seen at bedside. She is up walking to bathroom in room. She lives with her dgtr in her mother's home. Mother recently and patient and her dgtr have to sell home to pay off reverse mortgage. Home is 2 levels with half bath on entry
level. UP full flight stairs to bedroom and full bath. Onlyh DME is shower rail. No history of snf or home care.
pCp Judith Adkins
Pharmacy: [facility]
plan home no needs.
[2023-10-05 15:55] LABS: APTT 169.3 Sec (23.4-35.0)
[2023-10-05 16:00] LABS: Troponin I 0.022 ng/ml
--- NOTE | 2023-10-05 21:14 | CON.ONC ---
Impression
Impression
Met non-small cell lung cancer, marked adenopathy
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
Shortness of breath
Plan
Plan
Full-dose Eliquis for clot which appears to be chronic (at least since 08/19/23).
Would benefit from having a business intelligence administrator to manage underlying lung disease. May benefit from home neb machine.
Now on carbo/Alimta/Opdivo/Yervoy as per Dr. Patton.
Okay for D/C if shortness of breath improved.
If not, please consult Pulmonary.
Patient History
History of Present Illness
Patient is a 62 year old female patient with lung cancer, COPD, hypothyroidism who presents for worsening SOB. She states she has been experiencing ongoing SOB due to lung CA, but it acutely worsened today. She denies chest pain or worsening cough.
She also complains of ongoing hoarseness of voice and swelling of the neck for the past few weeks. CT scan in the ED showed a large filling defect in the distal left brachiocephalic vein, likely a central venous thrombus as well as moderate to
severe mediastinal, bilateral axillary and supraclavicular adenopathy. Pt states breathing much better since starting nebs. She does not have a home neb machine and states she does not have a Computer Support Analyst.
Past-Medical/Surgical History
Past Medical History
Stage LEONARDO Non-Small Cell Lung CA
Essential Hypertension
Hypothyroidism
Anxiety
COPD
Past Surgical History
Port
Liver Biopsy
Social History
Tobacco: Smoker (/2 PPD)
Alcohol: None
Family History
Family History: Not pertinent
Patient Medication
�Medication �Instructions �Recorded �Confirmed �Last Taken �Type
amlodipine 10 mg tablet 10 mg PO DAILY #30 tabs 06/22/20 10/04/23 10/01/23 Rx
Lorazepam 0.5 mg PO [id number] PRN anxiety 07/25/21 10/04/23 10/01/23 History
prednisone 5 mg tablet 10 mg PO DAILY 08/19/23 10/04/23 10/01/23 History
prochlorperazine maleate 10 mg 10 mg PO Q6H PRN nausea 08/19/23 10/04/23 08/18/23 History
tablet
folic acid 1 mg tablet 1 mg PO DAILY 09/09/23 10/04/23 10/01/23 History
levothyroxine 25 mcg tablet 25 mcg PO DAILY 09/09/23 10/04/23 10/01/23 History
(Synthroid)
budesonide 160 mcg-glycopyr 9 2 inh inhalation BID 10/04/23 10/04/23 Unknown History
mcg-formot 4.8 mcg/actuation HFA
inhaler (Breztri Aerosphere)
Active Medications
Generic Name Dose Route Start Last Admin
Trade Name Freq PRN Reason Stop Dose Admin
Acetaminophen 650 mg 10/05/23 01:27
Acetaminophen 325 Mg Tablet PO 11/02/23 01:26
Q4HPRN PRN
mild pain/ fever>100.5F
Albuterol/Ipratropium 3 ml 10/05/23 01:27
Ipratropium 0.5/Albuterol 3 Mg (3 Ml Ampul) INH
R Q4HPRN PRN
shortness of breath/wheeze
Protocol
Amlodipine Besylate 10 mg 10/05/23 08:00 10/05/23 08:13
Amlodipine 10 Mg Tablet PO 11/02/23 07:59 Not Given
DAILY PABLO
Folic Acid 1 mg 10/05/23 08:00 10/05/23 08:12
Folic Acid 1 Mg Tablet PO 11/02/23 07:59 1 mg
DAILY PABLO Administration
Heparin Sodium 7,200 units 10/04/23 23:50
Heparin 80 Units/Kg Rebolus-Do Not Discard IV 11/01/23 23:49
PRN PRN
PTT < OR = 64 seconds
Heparin Sodium 3,600 units 10/04/23 23:51
Heparin 40 Units/Kg Rebolus-Do Not Discard IV 11/01/23 23:50
PRN PRN
PTT = 64.1 to 72.9 seconds
Heparin Sodium (Porcine) 500 unit 10/05/23 08:45
Heparin Flush Pf (100 Unit/Ml) 5 Ml Syringe IV 11/02/23 08:44
PRN PRN
PORT FLUSH
Heparin Sodium 25,000 units in 250 mls @ 0 mls/hr 10/04/23 23:45 10/05/23 17:49
Heparin 02677 Units/250 Ml IV 250 mls
PER PROTOCOL PABLO Administration
Protocol
Per Protocol
Levothyroxine Sodium 25 mcg 10/05/23 06:00 10/05/23 04:57
Levothyroxine 25 Mcg Tablet PO 11/02/23 05:59 25 mcg
DAILY @ 0600 PABLO Administration
Lorazepam 0.5 mg 10/05/23 01:27 10/05/23 01:38
Lorazepam 0.5 Mg Tablet PO 0.5 mg
[id number] PRN Administration
anxiety
Nicotine 21 mg 10/05/23 13:00 10/05/23 13:29
Nicotine 21 Mg Patch TRANSDERM 11/02/23 12:59 21 mg
DAILY PABLO Administration
Prednisone 10 mg 10/05/23 08:00 10/05/23 08:12
Prednisone 10 Mg Tablet PO 11/02/23 07:59 10 mg
DAILY PABLO Administration
Sodium Chloride 0 flush 10/04/23 23:00
Sodium Chloride 0.9% (Flush) Syringe IV 11/01/23 22:59
PER PROTOCOL PABLO
Physical Exam
-
Ill-appearing with marked facial swelling
Cutaneous involvement with cancer L neck and upper chest wall
Heart RRR
Breath sounds diminished
No lower extremity edema
Neuro grossly non-focal
Labs
Lab Results
WBC 5.6 10^3/uL (4.8-10.8) 10/05/23 05:51
RBC 3.72 10^6/uL (4.20-5.40) L 10/05/23 05:51
Hgb 11.1 g/dL (12.0-16.0) L 10/05/23 05:51
Hct 32.4 % (37.0-47.0) L 10/05/23 05:51
MCV 87.1 fL (81.0-99.0) 10/05/23 05:51
MCH 29.8 pg (27.0-31.0) 10/05/23 05:51
MCHC 34.3 g/dL (33.0-37.0) 10/05/23 05:51
RDW 17.7 % (11.5-14.5) H 10/05/23 05:51
Plt Count 69 10^3/uL (130-400) L 10/05/23 05:51
MPV 10.6 fL (7.4-10.4) H 10/05/23 05:51
Creatinine 0.5 mg/dL (0.6-1.0) L 10/05/23 05:51
Vital Signs
Vital Signs
Temp Pulse Resp BP Pulse Ox
97.2 F 114 18 156/94 92
10/05/23 19:20 10/05/23 19:20 10/05/23 19:20 10/05/23 19:20 10/05/23 19:20
[2023-10-05 23:36] LABS: APTT 114.4 Sec (23.4-35.0)
[2023-10-06 03:29] VITALS: BP 122/69; BMI 31.2
[2023-10-06] MEDS: SYNTHROID 25 MCG PO (04:48)
[2023-10-06 05:18] LABS: Hematocrit 30.2 % (37.0-47.0); Hemoglobin 10.4 g/dL (12.0-16.0); Mean Corp Hgb Conc. 34.4 g/dL (33.0-37.0); Mean Corpuscular Hgb 30.3 pg (27.0-31.0); Mean Platelet Volume 11.1 fL (7.4-10.4); Platelet Count 42 10^3/uL (130-400); Red Blood Cell Count 3.43 10^6/uL (4.20-5.40); Red Cell Dist. Width 17.8 % (11.5-14.5); White Blood Cell Count 4.7 10^3/uL (4.8-10.8)
[2023-10-06 05:31] LABS: APTT 142.7 Sec (23.4-35.0)
[2023-10-06 06:00] VITALS: BMI 31.2
[2023-10-06 06:08] LABS: Blood Urea Nitrogen 14 mg/dl (7-17); Calcium 8.5 mg/dl (8.4-10.2); Carbon Dioxide 32 mmol/L (22-30); Chloride 95 mmol/L (98-107); Estimated Creatinine Clearance 107 ml/min; Glucose 92 mg/dl (70-99); Potassium 3.7 mmol/L (3.5-5.1); Sodium 132 mmol/L (135-145); eGFR > 60.00
[2023-10-06 07:00] VITALS: BP 112/62
[2023-10-06] MEDS: FOLVITE 1 MG PO (07:56)
[2023-10-06] MEDS: DELTASONE 10 MG PO (07:56)
[2023-10-06] MEDS: NICODERM TRANSDERMAL 21 MG TRANSDERM (07:56)
[2023-10-06] MEDS: ELIQUIS 10 MG PO (08:29)
--- NOTE | 2023-10-06 10:16 | CM ---
Met with pt at bedside - for d/c today
CM consult for VN/HH - offered choices
Requested [facility] - TT sent to Liaison
Discussed IMM
Has ride with daughter to home
Plan - home with [facility] when medically ready
--- NOTE | 2023-10-06 10:30 | W.DCSUMMARY ---
Discharge Summary
Discharge Data
Date of Admission: 10/04/23
Date of Discharge: 10/06/23
-
Pending Results: No
Hospital Course
62 years old female with history of lung cancer and chronic obstructive pulmonary disease of presented with worsening shortness of breath. Patient reported that she had chronic wheezes and shortness of breath. She denied chest pain or worsening
cough. No hemoptysis. Scan of the chest showed large filling defect in the distal left brachiocephalic vein, likely central venous thrombosis as well as moderate to severe mediastinal, bilateral axillary and supraclavicular adenopathy. Patient
was started on intravenous heparin. She was evaluated by hematology/oncology doctor. Recommendation to do full dose Eliquis for the clot which appeared to be chronic ( at least since 08/19/23). Patient reported improvement in her breathing. She
did not have fever. She did not have leukocytosis. Patient had a stage IV non-small cell lung cancer. Her sodium was low on admission. 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
secondary to lung disease. She was maintained on fluid restriction and was given 1 dose of tolvaptan. Her sodium improved to 132. She did not have confusion. She had low magnesium and was given magnesium replacement therapy. She had history of
anxiety and chronic obstructive pulmonary disease. Patient remained hemodynamically stable, she did not need nasal oxygen. Patient was advised to continue fluid restriction at home and to follow-up with her primary care physician. Patient was
discharged in a stable condition.
Physical Exam
General: Comfortable, Conversant and Other (Voice is hoarse which patient stated was chronic)
HEENT: Other (Facial/Neck Swelling, chronic per patient). Moist MM>
Respiratory: Much less wheezes, Non Labored Respirations
Cardiac: S1/S2, Regular Rhythm and not Tachycardia
GI: Soft and Non Tender
Rectal: No rectal bleeding
Musculoskeletal: No Clubbing, No Cyanosis and No Edema
Skin: Warm and Dry
Neuro: Awake, Alert, Oriented and Nonfocal/grossly intact
Psych: no agitation.
Total discharge time spent to see the patient, examine the patient on the floor, review data and lab results, discuss discharge plan with patient and nursing staff around 65 minutes
Discharge Plan
-
Patient Disposition: Home with Home Care
Discharge Diagnosis/Procedures: Brachiocephalic vein thrombus. You are started on full dose Eliquis. You were seen by recovery engineer. We recommend outpatient follow-up with your recovery engineer.
You had low sodium, continue fluid restriction and regular diet at home. Please follow-up with your primary care doctor.
Hyponatremia
ANGEL
Condition: Good
Diet: Regular and Restrict fluids to 64 oz
Referrals:
Judith Escobar MD [Family Provider] - in one to two weeks
Prescriptions:
New
Eliquis 5 mg Tablet
10 mg PO BID Qty: 52 0RF
Rx Instructions:
Take 10 mg twice a day for 13 doses as a loading dose then 5 mg twice a day
Eliquis 5 mg Tablet
5 mg PO BID Qty: 60 0RF
Rx Instructions:
Take 10 mg twice a day for 13 doses as a loading dose then 5 mg twice a day
nicotine 21 mg/24 hr Patch 24 Hour
21 mg transdermal DAILY Qty: 28 0RF
Continued
amlodipine 10 MG tablet
10 mg PO DAILY Qty: 30 2RF
Lorazepam 0.5 MG Tablet
0.5 mg PO [id number] PRN (Reason: anxiety)
prednisone 5 mg Tablet
10 mg PO DAILY
prochlorperazine maleate 10 mg Tablet
10 mg PO Q6H PRN (Reason: nausea)
levothyroxine [Synthroid] 25 mcg Tablet
25 mcg PO DAILY
folic acid 1 mg Tablet
1 mg PO DAILY
Breztri Aerosphere 160-9-4.8 mcg/actuation Hfa Aerosol Inhaler
2 inh INHALATION BID
Discharge Orders:
Discharge Patient (As Directed); Ordered 10/06/23
Ordered By: Jenna López
Discharge Date and Time
Discharge Date/Time: 10/06/23 13:16
Print Language: SERBIAN
[2023-10-06 11:00] VITALS: BP 122/54
--- NOTE | 2023-10-06 12:13 | W.PN.UPDATE ---
Update Note
Progress Note Update
Saw the patient today. She is very anxious and eager to go home. She is threatening to go AMA yesterday. She is hemodynamic stable with good oxygenation.
Will discharge
--- NOTE | 2023-10-06 14:32 | VNURNOTE ---
Home Health Liaison met with patient at 1300 to discuss [facility] nurse visits, schedule and homebound status. Patient is agreeable and understands that visits at home will be 2-3 x per week to assess and teach medical management.
[facility] brochure provided with contact information. Patient is aware that [facility] will contact her for start of care in 1-2 days after discharge from .
[facility] referral completed in Care Port.
== END 2023-10-06 13:16 | disposition home health service (06) | DRG 300 ==
LOC: 3 WEST ACU 23:32
PROVIDERS: Hospitalist; Physician Assistant Medical; ADMITTING PHYSICIAN Internal Medicine; ATTENDING PHYSICIAN Internal Medicine; CONSULT PHYSICIAN Internal Medicine Hematology & Oncology; EMERGENCY PHYSICIAN Emergency Medicine; FAMILY PHYSICIAN Student in an Organized Health Care Education/Training Program
DX: I82.290 Acute embolism and thrombosis of other thoracic veins (principal); C34.90 Malignant neoplasm of unspecified part of unspecified bronchus or lung; E22.2 Syndrome of inappropriate secretion of antidiuretic hormone; J44.0 Chronic obstructive pulmonary disease with (acute) lower respiratory infection; I87.1 Compression of vein; I31.39 Other pericardial effusion (noninflammatory); N17.9 Acute kidney failure, unspecified; I10 Essential (primary) hypertension; F17.210 Nicotine dependence, cigarettes, uncomplicated; E03.9 Hypothyroidism, unspecified; E83.42 Hypomagnesemia; F41.9 Anxiety disorder, unspecified; D69.59 Other secondary thrombocytopenia; R59.9 Enlarged lymph nodes, unspecified; E27.8 Other specified disorders of adrenal gland; Z88.0 Allergy status to penicillin; Z92.21 Personal history of antineoplastic chemotherapy; Z79.890 Hormone replacement therapy; Z79.52 Long term (current) use of systemic steroids; Z11.52 Encounter for screening for COVID-19
CPT/HCPCS: 71045; 71275; 80048; 82533; 83605; 83735; 83880; 83930; 83935; 84300; 84443; 84484; 85025; 85027; 85730; 87040; 87811; 93005; 94640; 96365; 99285; 99406; Q9967

== ENCOUNTER → 2023-10-16 13:49 | Outpatient (REF) | payer OTHER, SELFPAY | LOC: HWRCS 13:49 | PROVIDERS: ATTENDING PHYSICIAN Internal Medicine Cardiovascular Disease; FAMILY PHYSICIAN Student in an Organized Health Care Education/Training Program | DX: I31.39 Other pericardial effusion (noninflammatory) (principal) | CPT/HCPCS: 93308 ==

== ENCOUNTER 2023-10-21 07:45 | Outpatient (RCR) | payer OTHER, SELFPAY ==
[2023-09-30 08:58] VITALS: BP 130/84
[2023-09-30 09:09] LABS: % Basophils 0.7 % (0-2); % Eosinophils 0.5 % (0-6); % Lymphocytes 9.3 % (20.5-51.1); % Monocytes 8.8 % (1.7-9.3); % Neutrophils 79.7 % (42.2-75.2); Absolute Basophils 0.1 10^3/uL (0-0.2); Absolute Eosinophils 0.1 10^3/uL (0-0.7); Absolute Immature Granulocytes 0.1 10^3/uL (0-0.05); Absolute Lymphocytes 1.1 10^3/uL (1.2-3.4); Absolute Monocytes 1.1 10^3/uL (0.1-0.6); Absolute Neutrophils 9.8 10^3/uL (1.4-6.5); Hematocrit 36.1 % (37.0-47.0); Hemoglobin 12.1 g/dL (12.0-16.0); Mean Corp Hgb Conc. 33.5 g/dL (33.0-37.0); Mean Corpuscular Hgb 30.3 pg (27.0-31.0); Mean Corpuscular Volume 90.3 fL (81.0-99.0); Mean Platelet Volume 9.1 fL (7.4-10.4); Platelet Count 178 10^3/uL (130-400); White Blood Cell Count 12.3 10^3/uL (4.8-10.8)
[2023-09-30 10:04] LABS: ALT (SGPT) 15 U/L (0-35); AST (SGOT) 21 U/L (14-36); Albumin 3.3 g/dl (3.5-5.0); Alkaline Phosphatase 98 U/L (38-126); Blood Urea Nitrogen 11 mg/dl (7-17); Calcium 9.2 mg/dl (8.4-10.2); Carbon Dioxide 30 mmol/L (22-30); Chloride 97 mmol/L (98-107); Glucose 143 mg/dl (70-99); Potassium 3.3 mmol/L (3.5-5.1); Sodium 131 mmol/L (135-145); Total Bilirubin 0.5 mg/dl (0.2-1.3); eGFR > 60.00
[2023-09-30 10:35] LABS: TSH Reflex To Free T4 3.38 uIU/ml (0.47-4.68)
[2023-09-30] MEDS: OPDIVO 136 MG IV (11:09)
[2023-09-30] MEDS: YERVOY 68 MG IV (12:01)
[2023-09-30] MEDS: EMEND 150 MG IV (12:41)
[2023-09-30] MEDS: ALOXI 5 MG IV (13:13)
[2023-09-30] MEDS: DECADRON 51 MG IV (13:13)
[2023-09-30] MEDS: ALIMTA/PEMETREXED 100 MG IV (13:46)
[2023-09-30] MEDS: PARAPLATIN 303 MG IV (14:03)
[2023-10-01 11:51] VITALS: BP 111/62
[2023-10-01] MEDS: KCL 260 MEQ IV (11:56)
[2023-10-01] MEDS: CLARITIN 10 MG PO (12:11)
[2023-10-01] MEDS: FULPHILA 6 MG SC (14:11)
[2023-10-21 08:00] VITALS: BP 139/85
[2023-10-21 08:18] VITALS: BMI 30.6
[2023-10-21 08:31] LABS: % Basophils 0.7 % (0-2); % Eosinophils 0.3 % (0-6); % Immature Granulocytes 1.9 % (0-0.5); % Lymphocytes 6.1 % (20.5-51.1); % Monocytes 8.1 % (1.7-9.3); % Neutrophils 82.9 % (42.2-75.2); Absolute Basophils 0.1 10^3/uL (0-0.2); Absolute Immature Granulocytes 0.3 10^3/uL (0-0.05); Absolute Lymphocytes 0.8 10^3/uL (1.2-3.4); Absolute Monocytes 1.1 10^3/uL (0.1-0.6); Absolute Neutrophils 11.5 10^3/uL (1.4-6.5); Hematocrit 33.1 % (37.0-47.0); Hemoglobin 11.1 g/dL (12.0-16.0); Mean Corp Hgb Conc. 33.5 g/dL (33.0-37.0); Mean Corpuscular Hgb 30.7 pg (27.0-31.0); Mean Corpuscular Volume 91.7 fL (81.0-99.0); Mean Platelet Volume 9.6 fL (7.4-10.4); Platelet Count 158 10^3/uL (130-400); Red Blood Cell Count 3.61 10^6/uL (4.20-5.40); Red Cell Dist. Width 19.9 % (11.5-14.5); White Blood Cell Count 13.9 10^3/uL (4.8-10.8)
[2023-10-21 08:42] LABS: ALT (SGPT) 13 U/L (0-35); AST (SGOT) 24 U/L (14-36); Albumin 3.4 g/dl (3.5-5.0); Alkaline Phosphatase 107 U/L (38-126); Blood Urea Nitrogen 9 mg/dl (7-17); Calcium 9.1 mg/dl (8.4-10.2); Carbon Dioxide 28 mmol/L (22-30); Chloride 94 mmol/L (98-107); Estimated Creatinine Clearance 106 ml/min; Glucose 99 mg/dl (70-99); Potassium 3.4 mmol/L (3.5-5.1); Sodium 129 mmol/L (135-145); Total Bilirubin 0.6 mg/dl (0.2-1.3); Total Protein 6.6 g/dl (6.3-8.2); eGFR > 60.00
[2023-10-21 09:12] LABS: TSH Reflex To Free T4 4.18 uIU/ml (0.47-4.68)
--- NOTE | 2023-10-21 10:20 | PTCARENOTE ---
Client presented for chemo today. Client experiencing severe selling of the neck, face, eyes and left arm. States that she has been having ongoing swelling of the face and neck but it is significantly worse now, hard and extending to eyes and left
arm. Client's port is also on the left. States she is having difficulty swallowing, excreting secretions and sleeping. VS 97.4 109 22 139/85 with a pulse ox of 97% on room air. [facility] notified and advised to send to emergency room for
evaluation.
== END 2023-10-24 23:59 | disposition home or self-care (01) ==
LOC: OID 07:45
PROVIDERS: ATTENDING PHYSICIAN Internal Medicine Hematology & Oncology
DX: C34.11 Malignant neoplasm of upper lobe, right bronchus or lung (principal); Z51.11 Encounter for antineoplastic chemotherapy (principal); C77.0 Secondary and unspecified malignant neoplasm of lymph nodes of head, face and neck; C34.91 Malignant neoplasm of unspecified part of right bronchus or lung; C78.7 Secondary malignant neoplasm of liver and intrahepatic bile duct
CPT/HCPCS: 36591; 80053; 84443; 85025; 96365; 96366; 96367; 96372; 96375; 96411; 96413; 96417; J1453; J2469; J9045; J9228; J9299; J9305; Q5108

== ENCOUNTER 2023-10-21 16:48 | Inpatient (IN) | payer MEDICARE, SELFPAY ==
[2023-10-21] VITALS (9 sets, daily range): BP systolic 105–140; BP diastolic 64–107; BMI 31.6; BMI 30.6
[2023-10-21] MEDS: NSS 1000 IV (12:21)
--- NOTE | 2023-10-21 12:31 | ED.GENMED ---
History of Present Illness
General
Chief Complaint: Swelling
Source: patient
Exam Limitations: none
Time Seen by Provider: 10/21/23 11:14
Nursing documentation reviewed up to this point in time: agreed with
Travel History
Have you had any contact with someone who has COVID-19?: No
Do you have any symptoms of coronavirus? Fever > 100 degrees, chills, cough, shortness of breath, sore throat, loss of taste or smell, muscle aches, or headache?: No
History of Present Illness
History of Present Illness:
Patient with history of metastatic lung cancer, along with ongoing neck swelling, recently started on Eliquis secondary to blood clot noted in her brachiocephalic vein, presents to ED secondary to increased neck swelling with worsening shortness of
breath with exertion, as well as increased left arm swelling. Denies fever or chills. Denies nausea, vomiting, or diarrhea. Denies chest pain. Denies headache. Denies dizziness. Denies difficulty with swallowing. Patient states that she was
told by her oncologist that her neck swelling is secondary to continual use of prednisone.
Past History
Past History
ED Past Medical History: Cancer (Stage IV lung cancer), COPD, HTN and Other (Bronchitis, pneumonia); Negative Hypercholesterolemia, IDDM, NIDDM or ME
ED Past Surgical History: Other (Liver biopsy. Subcutaneous port)
Social History
Tobacco: Smoker
Alcohol: None
Drug: None
Living: with family (daughter and 85 yo mother)
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
Family History
Family History: Hypertension; Negative CAD
Review of Systems
Review of Systems
Allergies reviewed?: Yes
All Other Systems: ROS reviewed and negative except as documented in HPI and ROS
Constitutional: Reports no symptoms
EENT: Reports no symptoms
Respiratory: Reports trouble breathing
Cardiac: Reports no symptoms
ABD/GI: Reports no symptoms
: Reports no symptoms
Musculoskeletal: Reports edema
Skin: Reports other (Neck swelling)
Neurological: Reports no symptoms
Phy Exam
Physical Exam
Physical Exam:
Physical Exam
General: mild distress, not acutely ill. afebrile
Head: nc/at. eomi
Neck: supple. no meningeal signs. normal posterior pharynx. submandibular swelling noted, diffuse, without tenderness.
Heart: s1/s2 regular rate and rhythm, no murmur. equal radial pulses.
Lungs: no acute respiratory distress. clear bilaterally
Abdomen: normal bowel sounds. not tender.
Neuro: alert and oriented. no focal neurological deficits
Skin: no rash.
Psychiatric: well kept. interactive and cooperative
Extremities: UE edema, L>R. no calf tenderness.
Scores
Heart Failure Risk
Heart Failure Risk Score: Not Applicable
Course
Orders/Labs/Results
Orders:
Orders
10/21/23 12:14
CT Chest With Iv Contrast Urgent
Comment:
Reason For Exam: neck swelling//sob, with known lung cancer
CT Neck With Iv Contrast Urgent
Comment:
Reason For Exam: swelling
10/21/23 12:15
0.9% Sodium Chloride 1000 ml [Nss] 1,000 ml IV BOLUS
10/21/23 Dinner
Regular
At Your Request: Full Participation
Does patient need a safe tray?: No
Fluid Restriction: 1200 mL/day (40 oz)
10/21/23 15:41
Heparin 7,100 units IV NOW STA
Nursing to Place Non Medication Order As Directed
Physician Order: PTT 6 hours after initial start of Heparin infusion
Above order entered?: Yes
10/21/23 15:45
Heparin 29352 Units/250 ml 25,000 units in 250 ml IV PER PROTOCOL
Weight to be used for heparin protocol in kilograms (kg):: 88.9
Protocol:: DVT/PE
PTT Goal Range to be used:: PTT 73 to 111 seconds
Order type:: Initial
INITIAL Infusion Dose (UNITS/KG/hr) & then follow protocol:: 18 units/kg/hr
Infusion Dose in UNITS/hr & then follow protocol (UNITS/hr):: 1,600
INFUSION RATE in mL/hr & then follow protocol (mL/hr):: 16
For DVT/PE algorithm, re-bolus for low PTT?: Yes
PTT less than or equal to 64 seconds:: Re-bolus 80 units/kg (max 10,000units). Increase by 400 units/hr
(+ 4mL/hr)
PTT 64.1 to 72.9 seconds:: Re-bolus 40 units/kg (max 5,000 units). Increase by 200 units/hr
(+ 2mL/hr)
PTT 73 to 111 seconds:: Target Range. No change in rate.
PTT 111.1 to 130.9 seconds:: Decrease rate by 200 units/hr (- 2 mL/hr)
PTT 131 to 199.9 seconds:: HOLD for 1 hr. Then decrease by 300 units/hr (- 3mL/hr)
PTT greater than or equal to 200 seconds:: HOLD for 2 hrs & Notify Provider. Then decrease by 400 units/hr
(- 4mL/hr)
Lab follow-up:: Each change, PTT q6h until 2 consecutive are therapeutic. Then
PTT daily.
10/21/23 16:15
PTT Urgent
10/21/23 16:28
Heparin 7,100 units IV PRN PRN
10/21/23 16:29
Heparin 3,600 units IV PRN PRN
10/21/23 16:35
Admit/Transfer Patient As Directed
Co-Sign Provider:
Level of Care: Inpatient admission
Assign to:: Telemetry
Physician / Group: nabor
Diagnosis: SVC thrombosis
Reason for Telemetry: Arrhythmia
Date to Stop Telemetry: 10/24/23
Time to Stop Telemetry: 11:00
Reason for Hospitalization: SVC thrombosis
Expected length of stay greater than two midnights?: Yes
ELOS- Estimated Length of Stay in days: 2
I certify the patient meets the requirements for IP care: Yes
10/21/23 16:36
Code Status As Directed
Resuscitation Status: Full Code
10/21/23 17:37
Albuterol [ProAIR HFA INHALER] 2 puff INH R Q6HPRN PRN
Docusate Sodium [Colace] 100 mg PO DAILYPRN PRN
Lorazepam [Ativan] 0.5 mg PO Q6HPRN PRN
Magnesium Hydroxide [Milk of Magnesia] 30 ml PO DAILYPRN PRN
Polyethylene Glycol Powder [Miralax] 17 grams PO DAILYPRN PRN
10/21/23 17:37
ONCOLOGY CONSULT Routine
Consulting Provider: Madhu Aguiar
Was physician already notified: Yes
Vascular Surgery Consult Routine
Consulting Provider: Ken Brandt III
Was physician already notified: Yes
VTE Contraindication Routine
VTE Mechanical Device Contraindication: Medical Contraindication
Pharmocologic Contraindication: Medical Contraindication
Heparin Protocol- PTT Orders As Directed
PTT per Heparin protocol: -Obtain CBC and baseline PTT - if not already collected.
-Obtain PTT 6 hours from start of infusion. Then, every 6 hours until 2 consecutive
PTT's are therapeutic. Then, PTT Daily.
-With each rate change, obtain PTT every 6 hours until 2 consecutive PTT's are
therapeutic. Then, PTT Daily.
Heparin Protocol- PTT Orders As Directed
PTT per Heparin protocol: -Obtain CBC and baseline PTT - if not already collected.
-Obtain PTT 6 hours from start of infusion. Then, every 6 hours until 2 consecutive
PTT's are therapeutic. Then, PTT Daily.
-With each rate change, obtain PTT every 6 hours until 2 consecutive PTT's are
therapeutic. Then, PTT Daily.
Activity As Directed
Activity Level: As Tolerated
Notify MD As Directed
Notify physician if: PTT is greater than or equal to 200.
Vital Signs As Directed
Frequency: Per unit guidelines
Speech Therapy Eval & Treat Routine
10/21/23 17:57
Loratadine [Claritin] 10 mg PO DAILYPRN PRN
10/21/23 18:00
Ondansetron HCl [Zofran] 8 mg PO Q8HPRN PRN
10/21/23 18:08
Magnesium Routine
10/22/23 06:00
Levothyroxine [Synthroid] 25 mcg PO DAILY @ 0600
10/22/23 08:00
Amlodipine [Norvasc] 10 mg PO DAILY
FOLic ACID [Folvite] 1 mg PO DAILY
Nicotine [Nicoderm Transdermal] 21 mg TRANSDERM DAILY
Prednisone [Deltasone] 10 mg PO DAILY
10/22/23 08:08
Complete Blood Count/With Diff IN AM
Comprehensive Metabolic Panel IN AM
10/24/23 11:00
DC Protocol for Telemetry ONCE
Abnormal Lab Results
10/21/23
16:15
APTT 36.9 H Sec
(23.4-35.0)
Vital Signs
Initial and Last Documented VS:
Initial Vital Signs
Temp Pulse Resp BP Pulse Ox
98.3 F 118 18 125/80 96
10/21/23 10:31 10/21/23 10:31 10/21/23 10:31 10/21/23 10:31 10/21/23 10:31
Last Documented Vital Signs
Temp Pulse Resp BP Pulse Ox
97.7 F 106 23 145/76 98
10/22/23 12:00 10/22/23 12:00 10/22/23 12:00 10/22/23 12:00 10/22/23 12:00
MDM/Problems Addressed
MDM/Problems Addressed:
CT report reviewed and discussed with on-call oncologist, Dr. Rivera. Recommends discontinuing Eliquis and admitted patient on heparin infusion.
*Critical Care Note
Total Time (30-74mins, 75-104mins- exclusive of procedures): Not Applicable
ED Attending Note
-
Portions of this chart may have been created with voice recognition software.� Occasional wrong word or��sound alike� substitutions may have occurred due to the inherent limitations of voice recognition software.
Discharge Plan
Departure
Patient Disposition: Admit
Date of Disposition: 10/21/23
Time of Disposition: 15:47
Admit to: Telemetry
Presentation/result/management discussed w/ accepting MD/DO: Hospitalist
Discharge Problem:
Superior vena cava thrombosis
Interventions
Interventions:
*Risk Screen - Suicide Last Done: 10/21/23 11:43
*General Assessment Last Done: 10/21/23 11:43
*Neglect/Abuse Screening Last Done: 10/21/23 11:43
ED- Fall Risk Assessment Last Done: 10/21/23 17:56
*ED COVID-19 Vaccine History Last Done: 10/21/23 10:31
*Nursing Disposition Last Done: 10/21/23 17:56
ED- Cardiac Assessment Last Done: 10/21/23 11:43
ED- Pulmonary Assessment Last Done: 10/21/23 11:43
ED-Skin Assessment Last Done: 10/21/23 11:43
Discharge Date and Time
Discharge Date/Time: 10/21/23 17:57
[2023-10-21] MEDS: HEPARIN 25000 UNITS/250 ML IV (16:37)
[2023-10-21] MEDS: HEPARIN 7100 UNITS IV (16:37)
[2023-10-21 16:39] LABS: APTT 36.9 Sec (23.4-35.0)
--- NOTE | 2023-10-21 16:44 | HPS.HSE ---
Addendum entered and electronically signed by Shaji Maloney MD 10/21/23 16:48:
Check magnesium due to hypokalemia.
Original Note:
Family Physician
-
Family Physician: Judith Escobar MD
Chief Complaint
-
neck swelling
History of Present Illness
62-year-old female past medical history of left brachiocephalic vein thrombosis, stage IV non-small cell lung cancer, COPD, hyponatremia, hypomagnesemia, thrombocytopenia secondary to chemotherapy, hypertension, hypothyroidism, bilateral adrenal
masses, small to moderate fibrinous pericardial effusion, anxiety, recently diagnosed with left distal brachiocephalic vein thrombosis presenting for worsening neck swelling over the past 2 weeks as well as swelling in her left upper extremity. She
denies any neck pain or pain in her left upper extremity. She denies facial flushing or headache. She has chronic blurry vision secondary to cataracts. She denies any chest pain. She is slightly more short of breath than usual and has hoarseness
of voice which is chronic. She also has a cough which is chronic. Denies dizziness or syncope. She denies nausea or vomiting or diarrhea.
She also has difficulty swallowing over the past few weeks especially with pills.
Her oncologist is Dr. Patton. She was scheduled to have chemotherapy today. She last received chemotherapy 3 weeks ago.
Patient was admitted 2 weeks ago from 10/03 to 10/05 for worsening shortness of breath. Patient had CT PE which showed large filling defect in the left distal brachiocephalic vein likely central venous stenosis as well as moderate to severe
mediastinal, bilateral axillary and supraclavicular adenopathy. Patient was started on IV heparin. Patient was seen by heme-onc.
Patient was started on Eliquis and her breathing improved.
Patient was started on fluid restriction for hyponatremia given 1 dose of tolvaptan.
Patient is only smoking 2 to 3 cigarettes at this time since starting nicotine patch. Denies alcohol.
Medical History
Past Medical History
Past Medical History: Reports Other ( left brachiocephalic vein thrombosis, stage IV non-small cell lung cancer, COPD, hyponatremia, hypomagnesemia, thrombocytopenia secondary to chemotherapy, hypertension, hypothyroidism, bilateral adrenal masses,
small to moderate fibrinous pericardial effusion, anxiety,)
Past Surgical History: Reports Other (Liver biopsy. Subcutaneous port))
Social History
Tobacco: Smoker
Alcohol: None
Drug: None
Family History
Family History: Not pertinent
Allergies / Home Medications
Allergies reflects when Allergies were last updated in [facility].
Home Medications with original date entered in [facility]
Allergy/Medication List:
Allergies
Allergy/AdvReac Type Severity Reaction Status Date / Time
Penicillins Allergy yeast Verified 10/21/23 10:33
infection
Home Medications
lorazepam 0.5 mg tablet 0.5 mg PO Q6HPRN PRN anxiety 07/25/21
prednisone 5 mg tablet 10 mg PO DAILY anti-inflammation 08/19/23
folic acid 1 mg tablet 1 mg PO DAILY Supplement 09/09/23
levothyroxine 25 mcg tablet (Synthroid) 25 mcg PO DAILY Thyroid 09/09/23
budesonide 160 mcg-glycopyr 9 mcg-formot 4.8 mcg/actuation HFA inhaler (Breztri Aerosphere) 2 inh inhalation R BID Lung/Breathing Issues 10/04/23
albuterol sulfate 90 mcg/actuation aerosol inhaler (ProAir HFA) 2 puff inhalation R Q6HPRN PRN sob 10/21/23
amlodipine 10 mg tablet 10 mg PO DAILY Blood Pressure 10/21/23
apixaban 5 mg tablet (Eliquis) 5 mg PO BID Blood Clot Prevention/Tx 10/21/23
docusate sodium 100 mg capsule (Colace) 100 mg PO DAILYPRN PRN constipation 10/21/23
fexofenadine 180 mg tablet (Charisse Allergy) 180 mg PO DAILYPRN PRN allergies 10/21/23
magnesium hydroxide 400 mg/5 mL oral suspension (Milk of Magnesia) 2,400 mg PO DAILYPRN PRN constipation 10/21/23
nicotine 21 mg/24 hr daily transdermal patch 21 mg transdermal DAILY nicotine replacement 10/21/23
ondansetron HCl 8 mg tablet 8 mg PO Q8HPRN PRN nausea 10/21/23
polyethylene glycol 3350 17 gram oral powder packet (Miralax) 17 g PO DAILYPRN PRN constipation 10/21/23
Review of Systems
-
History Source: Patient
A 12 point ROS was completed and negative except as noted: Yes
Constitutional: Reports No Symptoms
EENT: Reports No Symptoms
Respiratory: Reports See HPI
Cardiac: Reports No Symptoms
Abdomen/GI: Reports No Symptoms
: Reports No Symptoms
Musculoskeletal: Reports No Symptoms
Skin: Reports No Symptoms
Neurological: Reports No Symptoms
Endocrine: Reports No Symptoms
Hematologic/Lymphatic: Reports No Symptoms
Psych: Reports No Symptoms
Physical Exam
Vital Signs
Vital Signs
Temp Pulse Resp BP Pulse Ox
98.3 F 99 18 131/81 99
10/21/23 10:31 10/21/23 13:46 10/21/23 13:46 10/21/23 13:46 10/21/23 13:46
Physical Exam
General: Well Developed, Well Nourished and No Apparent Distress
HEENT: NormoCephalic, Moist mucous membranes, Atraumatic and Other (neck swelling, left upper extremity swelling )
Respiratory: Clear
Cardiac: S1/S2 and Regular Rhythm; No Murmur or Rub
GI: Soft, Non Tender, Non Distended and Normal Bowel Sounds; No Organomegaly
Rectal: Deferred by Provider
Musculoskeletal: No Clubbing, No Cyanosis and No Edema
Skin: No Rash
Neuro: Nonfocal/grossly intact
Laboratory Results
-
Laboratory Results
APTT 36.9 Sec (23.4-35.0) H 10/21/23 16:15
Data Reviewed
-
Lab Data: Labs Reviewed by me
Old Records: Reviewed
Impression/Plan
-
IMPRESSION:
PLAN:
# Neck swelling/left upper extremity swelling secondary to new superior vena cava thrombosis
# History of recent left brachiocephalic vein thrombosis
-CT chest shows superior vena cava thrombosis, previously seen 5 cm confluent felicia mass in the right cervical thoracic junction
-Prior CT chest scan from 10/03 showed left brachiocephalic vein thrombosis
-Check venous ultrasound left upper extremity to evaluate for DVT
-Switch Eliquis to heparin drip, may require long-term Lovenox
-Consult vascular surgery for consideration of thrombolysis
-Oncology consulted
# Dysphagia secondary to right cervical thoracic junction lymphadenopathy
-Check swallow evaluation
Stage IV non-small cell lung cancer on chemotherapy
-Continue prednisone
COPD
-Continue inhalers
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
-Fluid restriction 40 ounces
History of hypomagnesemia
Thrombocytopenia secondary to chemotherapy
-Improved
Essential hypertension
-Continue amlodipine
Hypothyroidism
-Continue levothyroxine
History of bilateral adrenal masses
History of small to moderate fibrinous pericardia
Anxiety/depression
-Continue Ativan
Tobacco use disorder
-Continue nicotine patch
Full code
DVT prophylaxis�heparin
Regular diet
--- NOTE | 2023-10-21 17:02 | CON.VAS ---
Addendum entered and electronically signed by Ken Brandt III, MD 10/21/23 17:44:
This patient was seen and examined with ELA Jones and ELA Owusu. I agree with the history and physical exam as well as the assessment and plan. I have the following additions:
62-year-old female
Stage IV lung cancer
Currently receiving chemotherapy
Prior XRT to the neck
Left chest wall port currently
Presents with increasing swelling in her neck along with left arm swelling
Denies swelling in the right arm
Denies voice changes
Denies acute worsening of shortness of breath
Has chronic cough and hoarseness at baseline
Consulted for thrombus in the SVC
I personally reviewed CT scans of the chest and neck from 10/21/2023, 10/04/2023, 10/01/2023, 08/19/2023 and 01/21/2023
There is thrombus surrounding the port catheter in the left brachiocephalic extending to the confluence of the left and right brachiocephalic veins and involving the origin of the superior vena cava. This has been present since July 2023.
She is on Eliquis at home for this particular issue.
On physical exam she is nontoxic-appearing
Face and neck are swollen
Speaking in full sentences
Does not appear to have labored respirations
Left upper extremity is diffusely edematous compared to the right
She reports that the right is at baseline.
Admit to ICU
Close monitoring
Keep HOB elevated to reduce any potential symptoms
Anticoagulation with Heparin gtt- therapeutic ptt goal
Options for mechanical thrombectomy are quite limited at this point given chronicity of the thrombus (present ~ 9 weeks) and the ongoing need for the port (with limited vascular access options to replace if port removed).
Drake wrap compression left arm and elevation to help with edema
If ongoing symptoms would consult IR regarding additional input for mechanical thrombectomy options.
Call with questions/concerns
Signed:
Ken Brandt III, MD
[facility]
[phone] (cell)
Original Note:
Consultation
Consultation Request
Date/Time Consultation Performed: 10/21/23 1645
Requesting Provider: ED Provider
Performing Provider: Leni Vieyra NP-C for Ken Brandt III, MD
Reason for Consultation: Thrombus
Medical History
-
Chief Complaint: Venous thrombus
History of Present Illness:
This is a 62-year-old female with significant past medical history of left brachiocephalic vein thrombosis, stage IV non-small cell lung cancer, COPD, hyponatremia, hypomagnesemia, thrombocytopenia secondary to chemotherapy, hypertension,
hypothyroidism, bilateral adrenal masses, small to moderate fibrinous pericardial effusion, and anxiety (who was recently diagnosed with left distal brachiocephalic vein thrombosis placed on Eliquis on 10/03), who presents for worsening neck swelling
over the past 2 weeks as well as swelling in her left upper extremity. She does report loss of secondary insurance a few months ago leading to her missing chemo/doctor appointments and then shortly after learned her cancer had spread. She denies
neck pain, CP, and HE. Does endorse chronic cough and hoarse voice, which is unchanged from baseline. Denies dizziness or syncope. She denies nausea or vomiting or diarrhea. She also has difficulty swallowing over the past few weeks especially with
pills.
Past Medical History
Past Medical History: Other ( left brachiocephalic vein thrombosis, stage IV non-small cell lung cancer, COPD, hyponatremia, hypomagnesemia, thrombocytopenia secondary to chemotherapy, hypertension, hypothyroidism, bilateral adrenal masses, small to
moderate fibrinous pericardial effusion, anxiety)
Past Surgical History: Other (liver biopsy, port placement )
Social History
Tobacco: Smoker
Alcohol: None
Drug: None
Allergies / Home Medications
Allergy/AdvReac Type Severity Reaction Status Date / Time
Penicillins Allergy yeast Verified 10/21/23 10:33
infection
�Medication �Instructions �Recorded �Confirmed �Type
lorazepam 0.5 mg tablet 0.5 mg PO Q6HPRN PRN anxiety 07/25/21 10/21/23 History
prednisone 5 mg tablet 10 mg PO DAILY anti-inflammation 08/19/23 10/21/23 History
folic acid 1 mg tablet 1 mg PO DAILY Supplement 09/09/23 10/21/23 History
levothyroxine 25 mcg tablet 25 mcg PO DAILY Thyroid 09/09/23 10/21/23 History
(Synthroid)
budesonide 160 mcg-glycopyr 9 2 inh inhalation R BID 10/04/23 10/21/23 History
mcg-formot 4.8 mcg/actuation HFA Lung/Breathing Issues
inhaler (Breztri Aerosphere)
albuterol sulfate 90 mcg/actuation 2 puff inhalation R Q6HPRN PRN sob 10/21/23 10/21/23 History
aerosol inhaler (ProAir HFA)
amlodipine 10 mg tablet 10 mg PO DAILY Blood Pressure 10/21/23 10/21/23 History
apixaban 5 mg tablet (Eliquis) 5 mg PO BID Blood Clot 10/21/23 10/21/23 History
Prevention/Tx
docusate sodium 100 mg capsule 100 mg PO DAILYPRN PRN constipation 10/21/23 10/21/23 History
(Colace)
fexofenadine 180 mg tablet 180 mg PO DAILYPRN PRN allergies 10/21/23 10/21/23 History
(Charisse Allergy)
magnesium hydroxide 400 mg/5 mL 2,400 mg PO DAILYPRN PRN 10/21/23 10/21/23 History
oral suspension (Milk of Magnesia) constipation
nicotine 21 mg/24 hr daily 21 mg transdermal DAILY nicotine 10/21/23 10/21/23 History
transdermal patch replacement
ondansetron HCl 8 mg tablet 8 mg PO Q8HPRN PRN nausea 10/21/23 10/21/23 History
polyethylene glycol 3350 17 gram 17 g PO DAILYPRN PRN constipation 10/21/23 10/21/23 History
oral powder packet (Miralax)
Review of Systems
-
History Source: Patient
Constitutional: Reports Fatigue
EENT: Reports Other (SOB)
Respiratory: Reports Cough
Abdomen/GI: Reports No Symptoms
: Reports No Symptoms
Musculoskeletal: Reports Edema (neck and LUE)
Skin: Reports No Symptoms
Neurological: Reports No Symptoms
Physical Exam
Vital Signs
Temp Pulse Resp BP Pulse Ox
98.3 F 74 11 116/85 95
10/21/23 10:31 10/21/23 17:00 10/21/23 17:00 10/21/23 16:21 10/21/23 17:00
Physical Exam
General: No Apparent Distress and Comfortable
HEENT: Other (symmetrical neck swelling)
Respiratory: Non Labored Respirations
Cardiac: Negative JVD
GI: Non Distended
Musculoskeletal: Edema (BL UE edema, Left worse than right)
Skin: Warm
Neuro: AO x 3
Assessment / Plan
-
Assessment: 62 year old female with stage IV non small cell lung cancer, presenting with venous thrombus left distal brachial cephalic
Plan:
Reviewed prior CT in july of this year with attending Dr. Ken Brandt III, evidence of LUE brachial cephalic venous clot at that time, agree with anticoagulation per oncology
No surgical intervention at this time
Plan reviewed with attending
--- NOTE | 2023-10-21 17:45 | PTCARENOTE ---
10/20- Patient transferred and oriented to unit without issue. AAOX3; Heparin gtts currently running at 16mL/hr. APPT=36.9; next APPT ordered for 22:30. Lungs coarse throughout BL, but POX=94% on RA. Patient denies any current needs or concerns.
[2023-10-21 18:32] LABS: Magnesium 1.3 mg/dl (1.6-2.3)
[2023-10-21] MEDS: ATIVAN 0.5 MG PO (22:12)
[2023-10-21 22:48] LABS: INR 1.51; PT 18.1 Sec (11.4-14.6)
[2023-10-21 23:07] LABS: APTT > 200 Sec (23.4-35.0)
--- NOTE | 2023-10-21 23:15 | PTCARENOTE ---
PTT result > 200. House POLE TESTER Ana Boyle notified, heparin gtt stopped per protocol. No new orders, will restart heparin gtt in 2 hours at 12 mL/hr.
[2023-10-22 03:00] VITALS: BP 116/72
[2023-10-22] MEDS: SYNTHROID 25 MCG PO (04:53)
[2023-10-22] MEDS: NICODERM TRANSDERMAL 21 MG TRANSDERM (07:55)
[2023-10-22] MEDS: NORVASC 10 MG PO (07:58)
[2023-10-22] MEDS: FOLVITE 1 MG PO (07:58)
[2023-10-22] MEDS: DELTASONE 10 MG PO (07:58)
[2023-10-22] MEDS: ATIVAN 0.5 MG PO (07:59)
[2023-10-22 08:13] VITALS: BP 124/83
[2023-10-22 08:44] LABS: % Basophils 1.1 % (0-2); % Eosinophils 1.1 % (0-6); % Immature Granulocytes 2.2 % (0-0.5); % Lymphocytes 7.8 % (20.5-51.1); % Monocytes 8.4 % (1.7-9.3); % Neutrophils 79.4 % (42.2-75.2); Absolute Basophils 0.1 10^3/uL (0-0.2); Absolute Eosinophils 0.1 10^3/uL (0-0.7); Absolute Immature Granulocytes 0.3 10^3/uL (0-0.05); Absolute Neutrophils 9.7 10^3/uL (1.4-6.5); Hematocrit 30.9 % (37.0-47.0); Hemoglobin 10.5 g/dL (12.0-16.0); Mean Corpuscular Hgb 30.8 pg (27.0-31.0); Mean Corpuscular Volume 90.6 fL (81.0-99.0); Mean Platelet Volume 10.1 fL (7.4-10.4); Nucleated Red Blood Cells % 0 %; Platelet Count 152 10^3/uL (130-400); Red Blood Cell Count 3.41 10^6/uL (4.20-5.40); Red Cell Dist. Width 20.7 % (11.5-14.5); White Blood Cell Count 12.2 10^3/uL (4.8-10.8)
[2023-10-22 08:56] LABS: APTT 78.3 Sec (23.4-35.0)
--- NOTE | 2023-10-22 09:27 | VNURNOTE ---
Patient is current with [facility] since 10/08 w/SN, will monitor progress and plan at discharge.
--- NOTE | 2023-10-22 09:52 | PTOTSP ---
SPEECH THERAPY SWALLOW EVALUATION:
Patient exhibits grossly functional oral swallow and clinical signs of suspected pharyngeal dysphagia, likely chronic related to stage IV lung cancer with associated right paratracheal mass with esophageal compression and Left trachea deviation.
Patient is at high risk for aspiration and related complications given: location of paratracheal mass suspicious for impacting swallow function, history of radiation therapy to neck, severely harsh/strained vocal quality (though patient denied
changes), neck and surrounding area firm upon palpation, suspicious for anatomical changes related to XRT. WBC currently elevated. Recommend Videofluoroscopic Swallowing Study to further assess patient's swallow function. Discussed recommendation
with patient, who reported she previously has 'bad reaction to barium'. Discussed this with Dr. Lacey AMBRIZ to await clearance from MD prior to VSE to ensure patient able to safely participate. Given chronicity of dysphagia, patient appears safe
to continue oral diet at this time. Recommend Regular texture diet, thin liquids. Meds whole in puree. Aspiration precautions: Upright positioning, small single sips/bites, slow rate. ST to follow, provide additional recommendations following VSE if
able to complete, and provide continued diagnostic swallow therapy as appropriate.
RECOMMEND:
1) Videofluoroscopic Swallowing Study if/when cleared by MD
2) Regular texture diet, thin liquids
3) Meds whole in puree
4) Aspiration precautions: Upright positioning, small single sips/bites, slow rate
5) ST to follow
[2023-10-22] MEDS: MAGNESIUM SULFATE 50 IV (11:05)
[2023-10-22 11:39] LABS: ALT (SGPT) 13 U/L (0-35); AST (SGOT) 27 U/L (14-36); Albumin 3.1 g/dl (3.5-5.0); Alkaline Phosphatase 100 U/L (38-126); Blood Urea Nitrogen 9 mg/dl (7-17); Calcium 8.8 mg/dl (8.4-10.2); Carbon Dioxide 26 mmol/L (22-30); Chloride 96 mmol/L (98-107); Estimated Creatinine Clearance 106 ml/min; Glucose 73 mg/dl (70-99); Potassium 3.5 mmol/L (3.5-5.1); Sodium 130 mmol/L (135-145); Total Bilirubin 0.6 mg/dl (0.2-1.3); eGFR > 60.00
--- NOTE | 2023-10-22 11:54 | W.PN.UPDATE ---
Update Note
Progress Note Update
Impression:
SVC thrombosis
Non-small cell lung carcinoma with right apical mass
Right chest chemotherapy port
Conditions prior to admission:
[2023-10-22 12:00] VITALS: BP 145/76
[2023-10-22] MEDS: HEPARIN 25000 UNITS/250 ML IV (12:24)
--- NOTE | 2023-10-22 13:43 | W.PN.HOSP.TC ---
Addendum entered and electronically signed by Evert Rahman MD 10/22/23 17:48:
Patient seen and examined
Discussed with resident
Discussed with oncology and vascular surgery.
62-year-old female with stage IV non-small cell carcinoma with right apical tumor presents with increasing swelling in her neck along with the left arm swelling.
Patient is afebrile, not short of breath with stable respiratory and hemodynamic status.
CT scan of the chest and neck from 528 consistent with thrombosis surrounding port catheter in the left brachiocephalic extending to the confluence of the left and right brachiocephalic vein and involving origin of superior vena cava which present
since July 2023.
Patient is on anticoagulation with Eliquis as outpatient.
Initiated on IV heparin.
Found to be not at thrombosis candidate due to age of from.
Later in review with imaging there is a concern for mechanical compression with significant lymphadenopathy causing progression of SVC thrombosis.
Oncology input appreciated.
Patient is planned for initiation of radiation treatment
Will be transition off IV heparin back to Eliquis and discharged to follow-up with oncology and radiation oncology as soon as possible.
Original Note:
Today's Communication/Plan
-
Switch to oral eliquis.
Follow up with oncology outpatient
Follow up with radiation oncology and resume XRT.
Assessment / Plan
Assessment / Plan
Assessment-
62-year-old female with PMHx significant for left brachiocephalic vein thrombosis, stage IV NSCLC, COPD, thrombocytopenia, hyponatremia, hypomagnesemia secondary to chemotherapy, hypertension, hypothyroidism, bilateral adrenal masses presents for
evaluation of worsening neck swelling and swelling in her left upper extremity x 2 weeks-diagnosed with SVC thrombosis.
Impression-
SVC thrombosis
Left brachiocephalic vein thrombosis
Hypokalemia
Hyponatremia
Hypomagnesemia
Conditions FINISHER MACHINE-
Stage IV NSCLC
COPD
Recent diagnosis of left brachiocephalic vein thrombosis
thrombocytopenia, hyponatremia, hypomagnesemia secondary to chemotherapy,
Hypertension
Hypothyroidism
Bilateral adrenal masses
Small to moderate fibrinous pericardial effusion
Anxiety
Plan-
PLAN:
SVC thrombosis-
Secondary to malignant Apical tumor versus superior mediastinal lymphadenopathy.
History of recent left brachiocephalic vein thrombosis
Chest CT W IV contrast -10/21/23
Impression-
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
There is extensive stable adenopathy including a 5 cm confluent felicia mass at the right cervicothoracic junction as detailed above.
There is 13 mm stable spiculated neoplasm in the right upper lobe consistent with malignant involvement
Nodular enlargement of both adrenals consistent with stable adrenal metastasis
CT neck W IV contrast-10/13/23-
There is a stable 4.5 x 5 x 4.5 cm stable soft tissue mass at the right cervicothoracic junction associated with significant compression of the right internal jugular vein without associated obstruction.
There is superior mediastinal, right submandibular, bilateral cervical and bilateral axillary and subpectoral lymphadenopathy, stable when compared with prior study
There is a stable 13 mm spiculated right upper lobe pulmonary mass
There are small bilateral pleural effusions
Referral vascular ultrasound shows no sonographic evidence for left upper extremity venous thrombosis.
Vascular surgery on board, recommended optimal medical management with therapeutic IV heparin at this time.
Options for mechanical thrombectomy limited given chronicity of the thrombus, present for 9 weeks and the ongoing need for port.
Drake wrap compression for left arm.
Oncology consulted.
Dysphagia secondary to right cervical thoracic junction lymphadenopathy
Sips and bites recommended
Stage IV non-small cell lung cancer on chemotherapy
continue prednisone
COPD
Continue inhalers
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
Fluid restriction 40 ounces
History of hypomagnesemia
Thrombocytopenia secondary to chemotherapy
Improved
Essential hypertension
Continue amlodipine
Hypothyroidism
Continue levothyroxine
History of bilateral adrenal masses
History of small to moderate fibrinous pericardia
Anxiety/depression
Continue Ativan
Tobacco use disorder
Continue nicotine patch
Full code
DVT prophylaxis�heparin
Regular diet
Anticipated Discharge: Today
Subjective/Interval History
-
Date of Service: October 22, 2023
Patient reports no much improvement in her SOB, hand and neck swelling.
Objective Data
-
Labs:
Laboratory Results
10/22/23 10/22/23
08:08 14:10
WBC 12.2 H
Hgb 10.5 L
Hct 30.9 L
Plt Count 152
APTT 78.3 H Pending
Sodium 130 L
Potassium 3.5
Chloride 96 L
Carbon Dioxide 26
BUN 9
Creatinine 0.6
Glucose 73
Calcium 8.8
Total Bilirubin 0.6
AST 27
ALT 13
Alkaline Phosphatase 100
Vital Signs:
Vital Signs
Temp Pulse Resp BP Pulse Ox
97.7 F 106 23 145/76 98
10/22/23 12:00 10/22/23 12:00 10/22/23 12:00 10/22/23 12:00 10/22/23 12:00
Physical Exam
-
General: Comfortable
HEENT: Normocephalic, Atraumatic, Moist Mucous Membranes, No Ptosis and PERRLA
Respiratory: Wheezes and Rhonchi
Cardiac: Regular Rhythm, S1/S2 and Other (no murmurs rubs and gallops.)
GI: Soft, Nontender, Nondistended and Normal Bowel Sounds
Genito-urinary: No Costovertebral Tender
Musculoskeletal: No Clubbing, No Cyanosis, Edema, Right Upper Extrem and Edema, Left Upper Extrem
Neuro: AO x 3 and No Motor Deficits
Psych: Calm
[2023-10-22 13:58] LABS: Osmolality Serum 272 mOsm/kg (275-300)
[2023-10-22 14:59] LABS: APTT 87.2 Sec (23.4-35.0)
--- NOTE | 2023-10-22 15:12 | W.DS.TRANS ---
DC Summary - Claims Assistant
-
Discharge Instructions:
Discharge Diagnosis/Procedures SVC thrombosis
Diet Restrict fluids to 48 oz
Activity As tolerated
Driving Restrictions As prior to admission
Bathing Restrictions None
Instructions:
Stand-Alone Forms:
Changes to Home Medications: No
Discharge Medications:
DC Medications w/original date entered in [employer]
lorazepam 0.5 mg tablet 0.5 mg PO Q6HPRN PRN anxiety 07/25/21
prednisone 5 mg tablet 10 mg PO DAILY anti-inflammation 08/19/23
folic acid 1 mg tablet 1 mg PO DAILY Supplement 09/09/23
levothyroxine 25 mcg tablet (Synthroid) 25 mcg PO DAILY Thyroid 09/09/23
budesonide 160 mcg-glycopyr 9 mcg-formot 4.8 mcg/actuation HFA inhaler (Breztri Aerosphere) 2 inh inhalation R BID Lung/Breathing Issues 10/04/23
albuterol sulfate 90 mcg/actuation aerosol inhaler (ProAir HFA) 2 puff inhalation R Q6HPRN PRN sob 10/21/23
amlodipine 10 mg tablet 10 mg PO DAILY Blood Pressure 10/21/23
apixaban 5 mg tablet (Eliquis) 5 mg PO BID Blood Clot Prevention/Tx 10/21/23
docusate sodium 100 mg capsule (Colace) 100 mg PO DAILYPRN PRN constipation 10/21/23
fexofenadine 180 mg tablet (Charisse Allergy) 180 mg PO DAILYPRN PRN allergies 10/21/23
magnesium hydroxide 400 mg/5 mL oral suspension (Milk of Magnesia) 2,400 mg PO DAILYPRN PRN constipation 10/21/23
nicotine 21 mg/24 hr daily transdermal patch 21 mg transdermal DAILY nicotine replacement 10/21/23
ondansetron HCl 8 mg tablet 8 mg PO Q8HPRN PRN nausea 10/21/23
polyethylene glycol 3350 17 gram oral powder packet (Miralax) 17 g PO DAILYPRN PRN constipation 10/21/23
Home Medication Changes
Pending Results: No
--- NOTE | 2023-10-22 15:13 | W.DCSUMMARY ---
Documented by User: Karolina Callejas MD, Resident 10/22/23 15:21
Discharge Summary
Discharge Data
Date of Admission: 10/21/23
Date of Discharge: 10/22/23
-
Pending Results: No
Hospital Course
Assessment-
62-year-old female with PMHx significant for left brachiocephalic vein thrombosis, stage IV NSCLC, COPD, thrombocytopenia, hyponatremia, hypomagnesemia secondary to chemotherapy, hypertension, hypothyroidism, bilateral adrenal masses presents for
evaluation of worsening neck swelling and swelling in her left upper extremity x 2 weeks-diagnosed with SVC thrombosis.
Impression-
SVC thrombosis
Left brachiocephalic vein thrombosis
Hypokalemia
Hyponatremia
Hypomagnesemia
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
Stage IV NSCLC
COPD
Recent diagnosis of left brachiocephalic vein thrombosis
thrombocytopenia, hyponatremia, hypomagnesemia secondary to chemotherapy,
Hypertension
Hypothyroidism
Bilateral adrenal masses
Small to moderate fibrinous pericardial effusion
Anxiety
Hospital course-
During her 1 day hospital course, vascular surgery saw her and determined that it would be optimal for her to receive medical management. Patient was switched from Eliquis to therapeutic dose of IV heparin. Options for mechanical thrombectomy
limited given chronicity of the thrombus, present for 9 weeks and the ongoing need for port. Oncology consulted, and per oncology patient missed follow-ups with radiation therapy and her SVC thrombosis secondary to mechanical obstruction from her
apical tumor. Patient was scheduled for mapping, oncology, radiation oncology appointments tomorrow in the a.m. Decision was made to discharge the patient home on Eliquis.
Investigations-
Chest CT W IV contrast -10/21/23
Impression-
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
There is extensive stable adenopathy including a 5 cm confluent felicia mass at the right cervicothoracic junction as detailed above.
There is 13 mm stable spiculated neoplasm in the right upper lobe consistent with malignant involvement
Nodular enlargement of both adrenals consistent with stable adrenal metastasis
CT neck W IV contrast-10/13/23-
There is a stable 4.5 x 5 x 4.5 cm stable soft tissue mass at the right cervicothoracic junction associated with significant compression of the right internal jugular vein without associated obstruction.
There is superior mediastinal, right submandibular, bilateral cervical and bilateral axillary and subpectoral lymphadenopathy, stable when compared with prior study
There is a stable 13 mm spiculated right upper lobe pulmonary mass
There are small bilateral pleural effusions
Peripheral vascular ultrasound shows no sonographic evidence for left upper extremity venous thrombosis.
Discharge Plan
-
Patient Disposition: Home (Routine Discharge)
Discharge Diagnosis/Procedures: SVC thrombosis
Condition: Fair
Diet: Restrict fluids to 48 oz
Activity: As tolerated
Driving Restrictions: As prior to admission
Bathing Restrictions: None
Referrals:
Jaylan Patton DO [Active] - Immediately
Judith Escobar MD [Family Provider] - in less than 1 week
Prescriptions:
Continued
lorazepam 0.5 mg Tablet
0.5 mg PO Q6HPRN PRN (Reason: anxiety)
prednisone 5 mg Tablet
10 mg PO DAILY
levothyroxine [Synthroid] 25 mcg Tablet
25 mcg PO DAILY
folic acid 1 mg Tablet
1 mg PO DAILY
fexofenadine [Charisse Allergy] 180 mg Tablet
180 mg PO DAILYPRN PRN (Reason: allergies)
Breztri Aerosphere 160-9-4.8 mcg/actuation Hfa Aerosol Inhaler
2 inh INHALATION R BID
Patient Comments:
patint gets free samples from pcp
polyethylene glycol 3350 [Miralax] 17 gram Powder In Packet
17 g PO DAILYPRN PRN (Reason: constipation)
ondansetron HCl 8 mg Tablet
8 mg PO Q8HPRN PRN (Reason: nausea)
magnesium hydroxide [Milk of Magnesia] 400 mg/5 mL Suspension
2,400 mg PO DAILYPRN PRN (Reason: constipation)
docusate sodium [Colace] 100 mg Capsule
100 mg PO DAILYPRN PRN (Reason: constipation)
albuterol sulfate [ProAir HFA] 90 mcg/actuation Hfa Aerosol Inhaler
2 puff INHALATION R Q6HPRN PRN (Reason: sob)
amlodipine 10 MG tablet
10 mg PO DAILY
nicotine 21 mg/24 hr patch 24 hour
21 mg transdermal DAILY
Eliquis 5 mg tablet
5 mg PO BID
Discharge Orders:
Discharge Patient (As Directed); Ordered 10/22/23
Ordered By: Karolina Callejas
Discharge Date and Time
Discharge Date/Time: 10/22/23 16:33
Print Language: MAORI

Documented by User: Evert Rahman MD 10/22/23 17:44
Discharge Summary
Discharge Data
Date of Admission: 10/21/23
Date of Discharge: 10/22/23
Discharge Plan
-
Patient Disposition: Home (Routine Discharge)
Discharge Diagnosis/Procedures: SVC thrombosis
Condition: Fair
Diet: Restrict fluids to 48 oz
Activity: As tolerated
Driving Restrictions: As prior to admission
Bathing Restrictions: None
Referrals:
Jaylan Patton DO [Active] - Immediately
Judith Escobar MD [Family Provider] - in less than 1 week
Prescriptions:
Continued
lorazepam 0.5 mg Tablet
0.5 mg PO Q6HPRN PRN (Reason: anxiety)
prednisone 5 mg Tablet
10 mg PO DAILY
levothyroxine [Synthroid] 25 mcg Tablet
25 mcg PO DAILY
folic acid 1 mg Tablet
1 mg PO DAILY
fexofenadine [Charisse Allergy] 180 mg Tablet
180 mg PO DAILYPRN PRN (Reason: allergies)
Breztri Aerosphere 160-9-4.8 mcg/actuation Hfa Aerosol Inhaler
2 inh INHALATION R BID
Patient Comments:
patint gets free samples from pcp
polyethylene glycol 3350 [Miralax] 17 gram Powder In Packet
17 g PO DAILYPRN PRN (Reason: constipation)
ondansetron HCl 8 mg Tablet
8 mg PO Q8HPRN PRN (Reason: nausea)
magnesium hydroxide [Milk of Magnesia] 400 mg/5 mL Suspension
2,400 mg PO DAILYPRN PRN (Reason: constipation)
docusate sodium [Colace] 100 mg Capsule
100 mg PO DAILYPRN PRN (Reason: constipation)
albuterol sulfate [ProAir HFA] 90 mcg/actuation Hfa Aerosol Inhaler
2 puff INHALATION R Q6HPRN PRN (Reason: sob)
amlodipine 10 MG tablet
10 mg PO DAILY
nicotine 21 mg/24 hr patch 24 hour
21 mg transdermal DAILY
Eliquis 5 mg tablet
5 mg PO BID
Discharge Orders:
Discharge Patient (As Directed); Ordered 10/22/23
Ordered By: Karolina aCllejas
Discharge Date and Time
Discharge Date/Time: 10/22/23 16:33
Print Language: MAORI
--- NOTE | 2023-10-22 15:22 | CON.ONC ---
Impression
Impression
Stage IV non-small cell lung cancer, heavily pretreated including prior chemotherapy and checkpoint inhibitor
Facial swelling due to IJ and other great vessel compression by adenopathy
Cutaneous spread of cancer, also likely contributing to swelling.
Plan
Plan
Discussed with pt that the facial swelling is due to her cancer and she needs radiation.
We discussed goals of care, pt states she needs to try to stay alive for her daughter. We will get our outpt social science instructor involved as I am also concerned about the missed Rad Onc appointment, question whether there may have been financial issues
or psychosocial issues involved in her cancelling the appointments.
Pt states she will follow up with Rad Onc as scheduled which will be in the next couple days.
Discussed with her that she will feel better, and will hopefully be able to avoid hospitalization (with potential interruption in systemic therapy) going forward.
Case discussed at length with Dr. Avila.
Please d/c home. Pt amenable.
Patient History
History of Present Illness
Patient is a 62 year old female patient with lung cancer, COPD, hypothyroidism who presents for worsening neck swelling. She states she has been experiencing ongoing neck swelling due to lung CA, admitted earlier this month with this problem. Found
to have filling defect within the central left brachiocephalic vein, likely representing thrombus or tumor thrombus. In retrospect, this had been present on 10/01/2023, and also on a prior study dated 08/19/2023, although was not present on 01/21/2023.
She was started on heparin and then transitioned to Eliquis. Pt had been off treatment for several months due to insurance/financial/psychosocial reasons but was treated wtih Opidvo/carboplatin/Alimta on September 08. She was also treated on September 29 with
addition of Yervoy at that time. She was due for her next treatment on October 20. Unfortunately the neck swelling has not improved and she comes in with complaint of worsening. She was referred to radiation oncology but has not yet seen them. It
sounds as though she canceled 2 appointments, indicated that she wanted to discuss with Dr. Castile first. She states Dr. Patton was not sure she needed the radiation and so she did not proceed with consultation. Patient dealing with ongoing
psychosocial issues: Mother recently , patient and 34-year-old daughter live together and have been trying to clean out the house of patient's mother's belongings, patient states her daughter 'has no one else' and thus her goal of care is
consistent with ongoing treatment. She was due for treatment on October 20 but when was admitted to the hospital at that time.Upper extremity Dopplers this admission show no evidence of thrombosis in left internal jugular, subclavian, axillary,
brachial, basilic or cephalic veins. Neck CT shows right paratracheal mass at cervicothoracic junction measuring 5 cm. It compresses the right internal jugular vein but is not associated with venous obstruction. There is continued adenopathy in
superior mediastinum, left supraclavicular adenopathy up to 3 cm and multiple areas of old large lymph nodes in the head and neck. These include confluent masses in the right parotid gland.
Past-Medical/Surgical History
Past Medical History
Stage LEONARDO Non-Small Cell Lung CA
Essential Hypertension
Hypothyroidism
Anxiety
COPD
Past Surgical History
Port
Liver Biopsy
Social History
Tobacco: Smoker (05/27 PPD)
Alcohol: None
Family History
Family History: Not pertinent
Patient Medication
Patient Medication
�Medication �Instructions �Recorded �Confirmed �Last Taken �Type
lorazepam 0.5 mg tablet 0.5 mg PO Q6HPRN PRN anxiety 07/25/21 10/21/23 10/20/23 History
prednisone 5 mg tablet 10 mg PO DAILY anti-inflammation 08/19/23 10/21/23 10/20/23 History
folic acid 1 mg tablet 1 mg PO DAILY Supplement 09/09/23 10/21/23 10/21/23 History
levothyroxine 25 mcg tablet 25 mcg PO DAILY Thyroid 09/09/23 10/21/23 10/21/23 History
(Synthroid)
budesonide 160 mcg-glycopyr 9 2 inh inhalation R BID 10/04/23 10/21/23 10/18/23 History
mcg-formot 4.8 mcg/actuation HFA Lung/Breathing Issues
inhaler (Breztri Aerosphere)
albuterol sulfate 90 mcg/actuation 2 puff inhalation R Q6HPRN PRN sob 10/21/23 10/21/23 Unknown History
aerosol inhaler (ProAir HFA)
amlodipine 10 mg tablet 10 mg PO DAILY Blood Pressure 10/21/23 10/21/23 10/21/23 History
apixaban 5 mg tablet (Eliquis) 5 mg PO BID Blood Clot 10/21/23 10/21/23 10/21/23 History
Prevention/Tx
docusate sodium 100 mg capsule 100 mg PO DAILYPRN PRN constipation 10/21/23 10/21/23 10/18/23 History
(Colace)
fexofenadine 180 mg tablet 180 mg PO DAILYPRN PRN allergies 10/21/23 10/21/23 10/21/23 History
(Charisse Allergy)
magnesium hydroxide 400 mg/5 mL 2,400 mg PO DAILYPRN PRN 10/21/23 10/21/23 10/18/23 History
oral suspension (Milk of Magnesia) constipation
nicotine 21 mg/24 hr daily 21 mg transdermal DAILY nicotine 10/21/23 10/21/23 10/20/23 History
transdermal patch replacement
ondansetron HCl 8 mg tablet 8 mg PO Q8HPRN PRN nausea 10/21/23 10/21/23 Unknown History
polyethylene glycol 3350 17 gram 17 g PO DAILYPRN PRN constipation 10/21/23 10/21/23 Unknown History
oral powder packet (Miralax)
Active Medications
Generic Name Dose Route Start Last Admin
Trade Name Freq PRN Reason Stop Dose Admin
Albuterol 2 puff 10/21/23 17:37
Albuterol Hfa [90 Mcg/Dose] Inhaler INH
R Q6HPRN PRN
sob
Protocol
Amlodipine Besylate 10 mg 10/22/23 08:00 10/22/23 07:58
Amlodipine 10 Mg Tablet PO 11/19/23 07:59 10 mg
DAILY PABLO Administration
Docusate Sodium 100 mg 10/21/23 17:37
Docusate Sodium 100 Mg Capsule PO 11/18/23 17:36
DAILYPRN PRN
constipation
Folic Acid 1 mg 10/22/23 08:00 10/22/23 07:58
Folic Acid 1 Mg Tablet PO 11/19/23 07:59 1 mg
DAILY PABLO Administration
Heparin Sodium 7,100 units 10/21/23 16:28
Heparin 80 Units/Kg Iv Rebolus IV 11/18/23 16:27
PRN PRN
PTT < OR = 64 seconds
Heparin Sodium 3,600 units 10/21/23 16:29
Heparin 40 Units/Kg Iv Rebolus IV 11/18/23 16:28
PRN PRN
PTT = 64.1 to 72.9 seconds
Heparin Sodium (Porcine) 500 unit 10/21/23 18:17
Heparin Flush Pf (100 Unit/Ml) 5 Ml Syringe IV 11/18/23 18:16
PRN PRN
PORT FLUSH
Heparin Sodium 25,000 units in 250 mls @ 0 mls/hr 10/21/23 15:45 10/22/23 12:24
Heparin 22415 Units/250 Ml IV 250 mls
PER PROTOCOL PABLO Administration
Protocol
Per Protocol
Levothyroxine Sodium 25 mcg 10/22/23 06:00 10/22/23 04:53
Levothyroxine 25 Mcg Tablet PO 11/19/23 05:59 25 mcg
DAILY @ 0600 PABLO Administration
Loratadine 10 mg 10/21/23 17:57
Loratadine 10 Mg Tablet PO 11/18/23 17:56
DAILYPRN PRN
allergies
Lorazepam 0.5 mg 10/21/23 17:37 10/22/23 07:59
Lorazepam 0.5 Mg Tablet PO 11/18/23 17:36 0.5 mg
Q6HPRN PRN Administration
anxiety
Magnesium Hydroxide 30 ml 10/21/23 17:37
Milk Of Magnesia 30 Ml Cup PO 11/18/23 17:36
DAILYPRN PRN
constipation
Nicotine 21 mg 10/22/23 08:00 10/22/23 07:55
Nicotine 21 Mg Patch TRANSDERM 11/19/23 07:59 21 mg
DAILY PABLO Administration
Ondansetron HCl 8 mg 10/21/23 18:00
Ondansetron 4 Mg Tablet PO 11/18/23 17:59
Q8HPRN PRN
nausea
Polyethylene Glycol 17 grams 10/21/23 17:37
Polyethylene Glycol Powder 17 Grams Packet PO 11/18/23 17:36
DAILYPRN PRN
constipation
Prednisone 10 mg 10/22/23 08:00 10/22/23 07:58
Prednisone 10 Mg Tablet PO 11/19/23 07:59 10 mg
DAILY PABLO Administration
Sodium Chloride 0 flush 10/21/23 18:00
Sodium Chloride 0.9% (Flush) Syringe IV 11/18/23 17:59
PER PROTOCOL PABLO
Review of Systems
-
History Source: Patient and Records
Constitutional: Reports No Appetite; Denies Fever or Weight Gain
EENT: Reports Other (Hoarseness, facial swelling.)
Respiratory: Reports No Symptoms
Cardiac: Reports No Symptoms
GI: Reports No Symptoms
: Reports No Symptoms
Musculoskeletal: Reports No Symptoms
Skin: Reports No Symptoms
Neuro: Reports No Symptoms
Endocrine: Reports No Symptoms
Hematologic/Lymphatic: Reports Swollen Glands
Allergy / Immunology: Reports No Symptoms
Psych: Reports Depressed and Anxious
Physical Exam
-
General: Appears Chronically Ill; Negative Appears in Distress
HEENT: Moist Mucous Membranes; Negative Jaundice
Cardiology: Normal Sinus Rhythm, S1 and S2
Pulmonary: Clear
GI: Soft
Musculoskeletal: No Clubbing, No Cyanosis and No Edema
Extremities: Negative Phlebitic Signs
Neurology: Non Focal and No Lateralizing Symptoms
Skin: Warm and Dry
Hematologic / Lymphatic: Lymphadenopathy and Other (Cutaneous involvement upper chest wall and posterior neck)
Psych: Calm and Anxious
Labs
Lab Results
WBC 12.2 10^3/uL (4.8-10.8) H 10/22/23 08:08
RBC 3.41 10^6/uL (4.20-5.40) L 10/22/23 08:08
Hgb 10.5 g/dL (12.0-16.0) L 10/22/23 08:08
Hct 30.9 % (37.0-47.0) L 10/22/23 08:08
MCV 90.6 fL (81.0-99.0) 10/22/23 08:08
MCH 30.8 pg (27.0-31.0) 10/22/23 08:08
MCHC 34.0 g/dL (33.0-37.0) 10/22/23 08:08
RDW 20.7 % (11.5-14.5) H 10/22/23 08:08
Plt Count 152 10^3/uL (130-400) 10/22/23 08:08
MPV 10.1 fL (7.4-10.4) 10/22/23 08:08
Abs Immat Gran (auto) 0.3 10^3/uL (0-0.05) H 10/22/23 08:08
Absolute Neuts (auto) 9.7 10^3/uL (1.4-6.5) H 10/22/23 08:08
Absolute Lymphs (auto) 1.0 10^3/uL (1.2-3.4) L 10/22/23 08:08
Absolute Monos (auto) 1.0 10^3/uL (0.1-0.6) H 10/22/23 08:08
Absolute Eos (auto) 0.1 10^3/uL (0-0.7) 10/22/23 08:08
Absolute Basos (auto) 0.1 10^3/uL (0-0.2) 10/22/23 08:08
Immature Gran % 2.2 % (0-0.5) H 10/22/23 08:08
Neutrophils % 79.4 % (42.2-75.2) H 10/22/23 08:08
Lymphocytes % 7.8 % (20.5-51.1) L 10/22/23 08:08
Monocytes % 8.4 % (1.7-9.3) 10/22/23 08:08
Eosinophils % 1.1 % (0-6) 10/22/23 08:08
Basophils % 1.1 % (0-2) 10/22/23 08:08
Creatinine 0.6 mg/dL (0.6-1.0) 10/22/23 08:08
Vital Signs
Vital Signs
Temp Pulse Resp BP Pulse Ox
97.7 F 106 23 145/76 98
10/22/23 12:00 10/22/23 12:00 10/22/23 12:00 10/22/23 12:00 10/22/23 12:00
--- NOTE | 2023-10-22 15:57 | CM ---
mortgage branch manager reviewed patient's chart and met with patient and patient is for discharge to home today, patient lives with her daughter in a 2 story home, patient is independent with adl's and ambulation, no dme, patient has a prescription plan and
uses [facility] pharmacy.
PCP: Judith Escobar
Plan; Home today no needs.
--- NOTE | 2023-10-22 16:41 | VNURNOTE ---
[facility] intake notified of discharge by TT.
== END 2023-10-22 16:33 | disposition home or self-care (01) | DRG 299 ==
LOC: 4 WEST ACU 16:48
PROVIDERS: Student in an Organized Health Care Education/Training Program; ADMITTING PHYSICIAN Hospitalist; ATTENDING PHYSICIAN Internal Medicine; CONSULT PHYSICIAN Surgery Vascular Surgery; EMERGENCY PHYSICIAN Emergency Medicine; FAMILY PHYSICIAN Student in an Organized Health Care Education/Training Program; OTHER PHYSICIAN Internal Medicine Hematology & Oncology
DX: I82.210 Acute embolism and thrombosis of superior vena cava (principal); J18.9 Pneumonia, unspecified organism; C34.90 Malignant neoplasm of unspecified part of unspecified bronchus or lung; J44.0 Chronic obstructive pulmonary disease with (acute) lower respiratory infection; E22.2 Syndrome of inappropriate secretion of antidiuretic hormone; I31.39 Other pericardial effusion (noninflammatory); I87.1 Compression of vein; I82.290 Acute embolism and thrombosis of other thoracic veins; M79.89 Other specified soft tissue disorders; E11.36 Type 2 diabetes mellitus with diabetic cataract; E87.6 Hypokalemia; I10 Essential (primary) hypertension; D69.59 Other secondary thrombocytopenia; R22.1 Localized swelling, mass and lump, neck; E83.42 Hypomagnesemia; E03.9 Hypothyroidism, unspecified; R13.10 Dysphagia, unspecified; T45.1X5A Adverse effect of antineoplastic and immunosuppressive drugs, initial encounter; F41.9 Anxiety disorder, unspecified; F32.A Depression, unspecified; F17.210 Nicotine dependence, cigarettes, uncomplicated; Z88.0 Allergy status to penicillin; Z79.52 Long term (current) use of systemic steroids; Z79.890 Hormone replacement therapy; Z79.01 Long term (current) use of anticoagulants; Z92.21 Personal history of antineoplastic chemotherapy; Z86.718 Personal history of other venous thrombosis and embolism
CPT/HCPCS: 70491; 71260; 80053; 83735; 83930; 85025; 85610; 85730; 92610; 93971; 96374; 96375; 99285; 99406; Q9967

== ENCOUNTER 2023-11-03 16:04 | Emergency (ER) | payer OTHER, SELFPAY ==
[2023-11-03 16:10] VITALS: BP 113/85
--- NOTE | 2023-11-03 20:57 | ED.GENMED ---
History of Present Illness
General
Chief Complaint: Head Injury
Source: patient
Exam Limitations: none
Time Seen by Provider: 11/03/23 17:08
Nursing documentation reviewed up to this point in time: agreed with
Travel History
Have you had any contact with someone who has COVID-19?: No
Do you have any symptoms of coronavirus? Fever > 100 degrees, chills, cough, shortness of breath, sore throat, loss of taste or smell, muscle aches, or headache?: No
History of Present Illness
History of Present Illness:
Patient sent to ED by oncology for eval s/p head injury. Patient states she tripped and fell yesterday. Hit left forehead on floor. No LOC. Has hematoma on left forehead. She is on Eliquis. Sent to ED by onc for head CT. Patient is awake and
alert, in no distress. Bruising to left forehead, migrating to left orbit and cheek.
Past History
Past History
ED Past Medical History: Cancer (Stage IV lung cancer), COPD, HTN and Other (Bronchitis, pneumonia); Negative Hypercholesterolemia, IDDM, NIDDM or NM
ED Past Surgical History: Other (Liver biopsy. Subcutaneous port)
Social History
Tobacco: Smoker
Alcohol: None
Drug: None
Living: with family (daughter and 85 yo mother)
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
Family History
Family History: Hypertension; Negative CAD
Review of Systems
Review of Systems
Allergies reviewed?: Yes
All Other Systems: ROS reviewed and negative except as documented in HPI and ROS
Constitutional: Reports no symptoms
EENT: Reports no symptoms
Respiratory: Reports no symptoms
Cardiac: Reports no symptoms
ABD/GI: Reports no symptoms
Musculoskeletal: Reports no symptoms
Skin: Reports other (hematoma left forehead, bruising around left orbit and cheek. No pain to left orbit or cheek.)
Neurological: Reports no symptoms
Psychiatric: Reports no symptoms
Phy Exam
General Physical Exam
General Presentation: well appearing and no apparent distress
General age: appears stated age
General Skin: warm and dry
General Habitus: normal
General Mental: alert
General Hydration: appears well hydrated
Eye Exam
Eye Exam: PERRL, EOMI, conjunctiva normal, globe normal and other (no evidence of entrapment. No orbit rim pain or step off)
Neurological Exam
Neurological Exam: alert, oriented x3, CN II-XII intact, no motor deficits, no sensory deficits and speech normal
Musculoskeletal Exam
Musculoskeletal Exam: full ROM, neuro vasc intact and other (No pain to left orbit, left cheek, cervical spine.)
Skin Exam
Skin Exam: warm/dry, no rash and other (hematoma to left forehead. Bruising migrating to left orbit and cheek)
Psychiatric Exam
Psychiatric Exam: normal mood/affect
Course
Orders/Labs/Results
Orders:
Orders
11/03/23 16:[address] [CT Head W/o Iv Contrast] Urgent
Comment:
Reason For Exam: fall
Vital Signs
Initial and Last Documented VS:
Initial Vital Signs
Temp Pulse Resp BP Pulse Ox
98.7 F 110 18 113/85 99
11/03/23 16:10 11/03/23 16:10 11/03/23 16:10 11/03/23 16:10 11/03/23 16:10
Last Documented Vital Signs
Temp Pulse Resp BP Pulse Ox
98.7 F 110 18 113/85 99
11/03/23 16:10 11/03/23 16:10 11/03/23 16:10 11/03/23 16:10 11/03/23 16:10
*Radiology
Radiology exam reviewed: radiology read reviewed
*Pulse Oximetry
Patient hypoxic: no
*Critical Care Note
Total Time (30-74mins, 75-104mins- exclusive of procedures): Not Applicable
ED Attending Note
-
Portions of this chart may have been created with voice recognition software.� Occasional wrong word or��sound alike� substitutions may have occurred due to the inherent limitations of voice recognition software.
Discharge Plan
Departure
Patient Disposition: Home (Routine Discharge)
Date of Disposition: 11/03/23
Time of Disposition: 17:45
Patient with high blood pressure during this ER visit?: No
Condition: Good
Covid-19: Not Applicable
Discharge Problem:
Head injury
Instructions: Head Injury in Adults (DC), Preventing falls in adults
Prescriptions:
No Action
lorazepam 0.5 mg Tablet
0.5 mg PO Q6HPRN PRN (Reason: anxiety)
prednisone 5 mg Tablet
10 mg PO DAILY
levothyroxine [Synthroid] 25 mcg Tablet
25 mcg PO DAILY
folic acid 1 mg Tablet
1 mg PO DAILY
fexofenadine [Charisse Allergy] 180 mg Tablet
180 mg PO DAILYPRN PRN (Reason: allergies)
Breztri Aerosphere 160-9-4.8 mcg/actuation Hfa Aerosol Inhaler
2 inh INHALATION R BID
Patient Comments:
patint gets free samples from pcp
polyethylene glycol 3350 [Miralax] 17 gram Powder In Packet
17 g PO DAILYPRN PRN (Reason: constipation)
ondansetron HCl 8 mg Tablet
8 mg PO Q8HPRN PRN (Reason: nausea)
magnesium hydroxide [Milk of Magnesia] 400 mg/5 mL Suspension
2,400 mg PO DAILYPRN PRN (Reason: constipation)
docusate sodium [Colace] 100 mg Capsule
100 mg PO DAILYPRN PRN (Reason: constipation)
albuterol sulfate [ProAir HFA] 90 mcg/actuation Hfa Aerosol Inhaler
2 puff INHALATION R Q6HPRN PRN (Reason: sob)
amlodipine 10 MG tablet
10 mg PO DAILY
nicotine 21 mg/24 hr patch 24 hour
21 mg transdermal DAILY
Eliquis 5 mg tablet
5 mg PO BID
Referrals:
Judith Escobar MD [Family Provider] - Keep scheduled appt
Interventions
Interventions:
*Risk Screen - Suicide Last Done: 11/03/23 16:13
*General Assessment Last Done: 11/03/23 16:13
*Neglect/Abuse Screening Last Done: 11/03/23 16:13
*Nursing Disposition Last Done: 11/03/23 18:00
ED-Musculoskeletal Assessment Last Done: 11/03/23 17:05
ED- Neurological Assessment Last Done: 11/03/23 17:05
ED-Skin Assessment Last Done: 11/03/23 17:05
Discharge Date and Time
Discharge Date/Time: 11/03/23 18:00
Print Language: GEORGIAN
== END 2023-11-03 18:00 | disposition home or self-care (01) ==
LOC: EMR 16:04
PROVIDERS: EMERGENCY PHYSICIAN Emergency Medicine; FAMILY PHYSICIAN Student in an Organized Health Care Education/Training Program
DX: S09.90XA Unspecified injury of head, initial encounter (principal); W19.XXXA Unspecified fall, initial encounter; J44.9 Chronic obstructive pulmonary disease, unspecified; I10 Essential (primary) hypertension; F17.200 Nicotine dependence, unspecified, uncomplicated; S00.83XA Contusion of other part of head, initial encounter; Z79.01 Long term (current) use of anticoagulants; Z82.49 Family history of ischemic heart disease and other diseases of the circulatory system
CPT/HCPCS: 99284; 70450